=== PATIENT | male | born 1955 | race Caucasian/White ===

== ENCOUNTER → 2016-11-01 | Outpatient (REF) | payer OTHER ==
[2016-11-01 19:37] LABS: MEAN CORPUSCULAR HEMOGLOBIN 30.2 pg (27.0-33.0); MEAN CORPUSCULAR HGB CONC 33.6 g/dl (32.0-36.5); RED CELL DISTRIBUTION WIDTH 13.1 % (11.5-14.5); WHITE BLOOD COUNT 7.2 K/mm3 (4.0-10.0)
[2016-11-01 19:44] LABS: ALBUMIN 3.6 GM/DL (3.2-5.2); ALBUMIN/GLOBULIN RATIO 1.16 (1.00-1.93); ALKALINE PHOSPHATASE 67 U/L (45-117); ALT/SGPT 32 U/L (12-78); ANION GAP 10 MEQ/L (8-16); AST/SGOT 19 U/L (15-37); BILIRUBIN,TOTAL 0.6 MG/DL (0.2-1.0); BLOOD UREA NITROGEN 22 MG/DL (7-18); CALCIUM LEVEL 8.1 MG/DL (8.8-10.2); CARBON DIOXIDE LEVEL 31 MEQ/L (21-32); CHLORIDE LEVEL 101 MEQ/L (98-107); CHOLESTEROL LEVEL 246 MG/DL (<200); CREATININE FOR GFR 0.78 MG/DL (0.70-1.30); GLOMERULAR FILTRATION RATE > 60.0 (>49); GLUCOSE, FASTING 101 MG/DL (80-110); POTASSIUM SERUM 4.8 MEQ/L (3.5-5.1); SODIUM LEVEL 142 MEQ/L (136-145); TOTAL PROTEIN 6.7 GM/DL (6.4-8.2); TRIGLYCERIDES LEVEL 157 MG/DL (<150)
[2016-11-01 19:52] LABS: CALCIUM OXALATE CRYSTALS SMALL
== END ==
LOC: M SFHCLERA 09:10
PROVIDERS: ATTEND Family Medicine
DX: E11.9 Type 2 diabetes mellitus without complications (principal); E11.69 Type 2 diabetes mellitus with other specified complication; N13.9 Obstructive and reflux uropathy, unspecified; I10 Essential (primary) hypertension

== ENCOUNTER → 2017-11-05 | Outpatient (REF) | payer OTHER ==
[2017-11-05 16:40] LABS: MAGNESIUM LEVEL 2.3 MG/DL (1.8-2.4)
[2017-11-05 16:42] LABS: BASO % 0.6 % (0.0-1.0); EOS # 0.1 10^3/uL (0.0-0.50); EOS % 0.9 % (0.0-3.0); HEMATOCRIT 45.7 % (42.0-52.0); HEMOGLOBIN 16.1 g/dl (14.0-18.0); IMMATURE GRANULOCYTE % 0.3 % (0-0); LYMPH # 2.6 10^3/uL (1.5-4.5); LYMPH % 37.1 % (24.0-44.0); MEAN CORPUSCULAR HEMOGLOBIN 30.9 pg (27.0-33.0); MEAN CORPUSCULAR HGB CONC 35.2 g/dl (32.0-36.5); MEAN CORPUSCULAR VOLUME 87.7 fl (80.0-96.0); MONO # 0.6 10^3/uL (0.0-0.8); MONO % 8.2 % (0.0-5.0); NEUTROPHILS # 3.7 10^3/uL (1.8-7.7); NEUTROPHILS % 52.9 % (36.0-66.0); PLATELET COUNT, AUTOMATED 229 10^3/uL (150-450); RED BLOOD COUNT 5.21 10^6/uL (4.30-6.10)
[2017-11-05 16:53] LABS: ESTIMATED AVERAGE GLUCOSE 151 MG/DL (60-110); HEMOGLOBIN A1c 6.9 %
[2017-11-05 16:58] LABS: ALBUMIN 4.1 GM/DL (3.2-5.2); ALKALINE PHOSPHATASE 79 U/L (45-117); AST/SGOT 32 U/L (7-37); BILIRUBIN,TOTAL 0.4 MG/DL (0.2-1.0); BLOOD UREA NITROGEN 20 MG/DL (7-18); CALCIUM LEVEL 8.7 MG/DL (8.8-10.2); CARBON DIOXIDE LEVEL 31 MEQ/L (21-32); CHLORIDE LEVEL 98 MEQ/L (98-107); CHOLESTEROL LEVEL 272 MG/DL (<200); CREATININE FOR GFR 0.69 MG/DL (0.70-1.30); GLUCOSE, FASTING 123 MG/DL (80-110); HDL CHOLESTEROL 41 MG/DL (>40); POTASSIUM SERUM 4.5 MEQ/L (3.5-5.1); SODIUM LEVEL 137 MEQ/L (136-145); TOTAL PROTEIN 7.5 GM/DL (6.4-8.2); TRIGLYCERIDES LEVEL 1747 MG/DL (<150)
[2017-11-05 17:07] LABS: ALT/SGPT 54 U/L (12-78)
[2017-11-05 17:15] LABS: ANION GAP 8 MEQ/L (8-16); CHOLESTEROL RISK RATIO 6.6 (<5); NON-HDL-C 231 MG/DL
[2017-11-05 17:16] LABS: ALBUMIN/GLOBULIN RATIO 1.21 (1.00-1.93)
[2017-11-05 18:30] LABS: CREATININE, URINE 94.7 MG/DL; MAU/CREAT RATIO 115.1 MCG/MG (0.0-30.0)
== END ==
LOC: M SFHCLERA 13:15
DX: G89.29 Other chronic pain (principal); I10 Essential (primary) hypertension
CPT/HCPCS: 83735

== ENCOUNTER → 2017-11-06 | Outpatient (REF) | payer OTHER ==
[2017-11-06 14:16] LABS: CHOLESTEROL LEVEL 274 MG/DL (<200); CHOLESTEROL RISK RATIO 5.829 (<5); HDL CHOLESTEROL 47 MG/DL (>40); NON-HDL-C 227 MG/DL; TRIGLYCERIDES LEVEL 868 MG/DL (<150)
== END ==
LOC: M SFHCLERA 09:14
DX: E78.2 Mixed hyperlipidemia (principal)

== ENCOUNTER → 2017-11-17 | Outpatient (REF) | payer OTHER ==
[2017-11-17 12:12] LABS: CHOLESTEROL LEVEL 195 MG/DL (<200); CHOLESTEROL RISK RATIO 3.979 (<5); HDL CHOLESTEROL 49 MG/DL (>40); NON-HDL-C 146 MG/DL; TRIGLYCERIDES LEVEL 469 MG/DL (<150)
== END ==
LOC: M SFHCLERA 08:01
DX: E78.1 Pure hyperglyceridemia (principal)

== ENCOUNTER 2018-02-08 21:44 | Emergency (ER) | payer OTHER ==
[2018-02-08] MEDS: LIDOCAINE VISCOUS 2% SOLN 15ML UDC SSP (22:31)
[2018-02-08] MEDS: PERCOCET 5MG/325MG TAB PO (22:32)
[2018-02-08] MEDS: OXYCODONE/APAP 5MG/325MG(BULK FOR ED) 1 TABLET PO (22:32)
== END 2018-02-08 22:36 | disposition home or self-care (01) ==
LOC: M ED 21:44
DX: K04.7 Periapical abscess without sinus (principal); E11.9 Type 2 diabetes mellitus without complications; I10 Essential (primary) hypertension; E78.5 Hyperlipidemia, unspecified; K21.9 Gastro-esophageal reflux disease without esophagitis; Z86.73 Personal history of transient ischemic attack (TIA), and cerebral infarction without residual deficits; Z79.01 Long term (current) use of anticoagulants; Z79.899 Other long term (current) drug therapy; Z79.2 Long term (current) use of antibiotics; Z88.8 Allergy status to other drugs, medicaments and biological substances; Z87.2 Personal history of diseases of the skin and subcutaneous tissue
CPT/HCPCS: 99282

== ENCOUNTER → 2018-04-28 | Outpatient (REF) | payer OTHER ==
[2018-04-28 12:19] LABS: ANION GAP 7 MEQ/L (8-16); BLOOD UREA NITROGEN 20 MG/DL (7-18); CALCIUM LEVEL 8.6 MG/DL (8.8-10.2); CARBON DIOXIDE LEVEL 32 MEQ/L (21-32); CHLORIDE LEVEL 101 MEQ/L (98-107); CHOLESTEROL LEVEL 152 MG/DL (<200); CHOLESTEROL RISK RATIO 3.304 (<5); CREATININE FOR GFR 0.81 MG/DL (0.70-1.30); GLOMERULAR FILTRATION RATE > 60.0 (>49); GLUCOSE, FASTING 165 MG/DL (70-100); HDL CHOLESTEROL 46 MG/DL (>40); NON-HDL-C 106 MG/DL; POTASSIUM SERUM 4.9 MEQ/L (3.5-5.1); SODIUM LEVEL 140 MEQ/L (136-145); TRIGLYCERIDES LEVEL 290 MG/DL (<150)
[2018-04-28 16:17] LABS: ESTIMATED AVERAGE GLUCOSE 166 MG/DL (60-110); HEMOGLOBIN A1c 7.4 %
== END ==
LOC: M SFHCLERA 08:09
DX: E11.9 Type 2 diabetes mellitus without complications (principal); E78.2 Mixed hyperlipidemia; I10 Essential (primary) hypertension
CPT/HCPCS: 83036

== ENCOUNTER → 2018-07-26 | Outpatient (REF) | payer OTHER ==
[2018-07-26 13:38] LABS: ESTIMATED AVERAGE GLUCOSE 143 MG/DL (60-110); HEMOGLOBIN A1c 6.6 %
== END ==
LOC: M SFHCLERA 07:45
DX: E11.9 Type 2 diabetes mellitus without complications (principal)

== ENCOUNTER 2018-07-27 03:34 | Emergency (ER) | payer OTHER ==
[2018-07-27 04:02] LABS: BASO % 0.2 % (0.0-1.0); EOS # 0.1 10^3/uL (0.0-0.50); EOS % 0.6 % (0.0-3.0); HEMATOCRIT 43.6 % (42.0-52.0); HEMOGLOBIN 15.1 g/dl (13.5-17.5); IMMATURE GRANULOCYTE % 0.6 % (0-3.0); LYMPH # 1.3 10^3/uL (1.5-4.5); LYMPH % 14.1 % (24.0-44.0); MEAN CORPUSCULAR HEMOGLOBIN 30.4 pg (27.0-33.0); MEAN CORPUSCULAR HGB CONC 34.6 g/dl (32.0-36.5); MEAN CORPUSCULAR VOLUME 87.9 fl (80.0-96.0); MONO # 0.4 10^3/uL (0.0-0.8); NEUTROPHILS # 7.3 10^3/uL (1.8-7.7); NEUTROPHILS % 80.5 % (36.0-66.0); PLATELET COUNT, AUTOMATED 244 10^3/uL (150-450); RED BLOOD COUNT 4.96 10^6/uL (4.30-6.10); RED CELL DISTRIBUTION WIDTH 12.3 % (11.5-14.5)
[2018-07-27 04:24] LABS: ANION GAP 8 MEQ/L (8-16); BLOOD UREA NITROGEN 26 MG/DL (7-18); CALCIUM LEVEL 8.7 MG/DL (8.8-10.2); CARBON DIOXIDE LEVEL 29 MEQ/L (21-32); CHLORIDE LEVEL 100 MEQ/L (98-107); CREATININE FOR GFR 1.09 MG/DL (0.70-1.30); GLOMERULAR FILTRATION RATE > 60.0 (>49); GLUCOSE, FASTING 201 MG/DL (70-100); POTASSIUM SERUM 4.3 MEQ/L (3.5-5.1); SODIUM LEVEL 137 MEQ/L (136-145)
[2018-07-27] MEDS: NS 1,000 ML IV (04:30)
[2018-07-27] MEDS: METOCLOPRAMIDE INJ 10MG/2ML VIAL (J2765) IV (04:30)
[2018-07-27] MEDS: MORPHINE 4 MG/ML 1ML VIAL/SYRINGE (J2270) IV ×3 (04:30→08:11)
[2018-07-27 04:52] LABS: ALBUMIN 3.9 GM/DL (3.2-5.2); ALBUMIN/GLOBULIN RATIO 1.08 (1.00-1.93); ALKALINE PHOSPHATASE 68 U/L (45-117); ALT/SGPT 37 U/L (12-78); AST/SGOT 17 U/L (7-37); BILIRUBIN,DIRECT 0.2 MG/DL (0.0-0.2); BILIRUBIN,TOTAL 0.7 MG/DL (0.2-1.0); LIPASE 87 U/L (73-393); TOTAL PROTEIN 7.5 GM/DL (6.4-8.2)
[2018-07-27] MEDS: GASTROGRAFIN SOLUTION 30ML PO ×2 (05:45→06:00)
[2018-07-27] MEDS ORDERED: ISOVUE-370 76% 100ML VIAL (Q9967) As Ordered (06:54)
[2018-07-27 07:29] LABS: AMORPHOUS SEDIMENT SMALL (NEGATIVE); APPEARANCE, URINE HAZY (CLEAR); BACTERIA, URINE AUTO NEGATIVE (NEGATIVE); BILIRUBIN, URINE AUTO NEGATIVE (NEGATIVE); BLOOD, URINE BLOOD 3+ (NEGATIVE); COLOR, URINE YELLOW (YELLOW); GLUCOSE, URINE (UA) AUTO NEGATIVE (NEGATIVE); KETONE, URINE AUTO TRACE mg/dL (NEGATIVE); LEUKOCYTE ESTERASE, URINE AUTO NEGATIVE (NEGATIVE); MUCUS, URINE SMALL (NEGATIVE); NITRITE, URINE AUTO NEGATIVE (NEGATIVE); PROTEIN, URINE AUTO 1+ mg/dL (NEGATIVE); RBC, URINE AUTO TNTC /HPF (0-3); SPECIFIC GRAVITY URINE AUTO 1.023 (1.002-1.035); SQUAMOUS EPITHELIAL CELL UR AU 0 /HPF (0-6); UROBILINOGEN, URINE AUTO 0.2 mg/dL (0.0-2.0); WBC, URINE AUTO 4 /HPF (0-3)
== END 2018-07-27 09:33 | disposition home or self-care (01) ==
LOC: M ED 03:34
DX: N20.1 Calculus of ureter (principal); E11.9 Type 2 diabetes mellitus without complications; I10 Essential (primary) hypertension; E78.5 Hyperlipidemia, unspecified; K76.0 Fatty (change of) liver, not elsewhere classified; E73.9 Lactose intolerance, unspecified; Z79.899 Other long term (current) drug therapy; Z88.8 Allergy status to other drugs, medicaments and biological substances
CPT/HCPCS: J2270

== ENCOUNTER 2018-07-28 16:34 | Emergency (ER) | payer OTHER ==
[2018-07-28] MEDS: ONDANSETRON 4MG/2ML VIAL (J2405) IV (17:19)
[2018-07-28] MEDS: MORPHINE 4 MG/ML 1ML VIAL/SYRINGE (J2270) IV ×2 (17:23→18:22)
[2018-07-28] MEDS: NS 1,000 ML IV (17:23)
[2018-07-28 17:28] LABS: KETONE, URINE AUTO RFX NEGATIVE (NEGATIVE); LEUKOCYTE ESTERASE UR AUTO RFX NEGATIVE (NEGATIVE); MUCUS, URINE RFX SMALL (NEGATIVE); NITRITE, URINE AUTO RFX NEGATIVE (NEGATIVE); RBC, URINE AUTO RFX 40 /HPF (0-3); SQUAM EPITHELIAL CELL UR AURFX 0 /HPF (0-6); WBC, URINE AUTO RFX 1 /HPF (0-3)
[2018-07-28 17:29] LABS: BASO % 0.5 % (0.0-1.0); EOS # 0.1 10^3/uL (0.0-0.50); EOS % 0.8 % (0.0-3.0); HEMATOCRIT 41.5 % (42.0-52.0); HEMOGLOBIN 14.3 g/dl (13.5-17.5); IMMATURE GRANULOCYTE % 0.3 % (0-3.0); LYMPH % 23.7 % (24.0-44.0); MEAN CORPUSCULAR HEMOGLOBIN 30.4 pg (27.0-33.0); MEAN CORPUSCULAR HGB CONC 34.5 g/dl (32.0-36.5); MEAN CORPUSCULAR VOLUME 88.3 fl (80.0-96.0); MONO # 0.7 10^3/uL (0.0-0.8); MONO % 8.4 % (0.0-5.0); NEUTROPHILS # 5.7 10^3/uL (1.8-7.7); NEUTROPHILS % 66.3 % (36.0-66.0); PLATELET COUNT, AUTOMATED 229 10^3/uL (150-450); RED CELL DISTRIBUTION WIDTH 12.3 % (11.5-14.5); WHITE BLOOD COUNT 8.6 10^3/uL (4.0-10.0)
[2018-07-28 17:57] LABS: ALBUMIN 3.6 GM/DL (3.2-5.2); ALBUMIN/GLOBULIN RATIO 1.03 (1.00-1.93); ALKALINE PHOSPHATASE 70 U/L (45-117); ALT/SGPT 34 U/L (12-78); ANION GAP 9 MEQ/L (8-16); AST/SGOT 18 U/L (7-37); BILIRUBIN,DIRECT 0.1 MG/DL (0.0-0.2); BILIRUBIN,TOTAL 0.5 MG/DL (0.2-1.0); BLOOD UREA NITROGEN 21 MG/DL (7-18); CALCIUM LEVEL 8.3 MG/DL (8.8-10.2); CARBON DIOXIDE LEVEL 27 MEQ/L (21-32); CHLORIDE LEVEL 104 MEQ/L (98-107); CREATININE FOR GFR 1.14 MG/DL (0.70-1.30); GLOMERULAR FILTRATION RATE > 60.0 (>49); GLUCOSE, FASTING 169 MG/DL (70-100); LIPASE 92 U/L (73-393); SODIUM LEVEL 140 MEQ/L (136-145); TOTAL PROTEIN 7.1 GM/DL (6.4-8.2)
== END 2018-07-28 19:20 | disposition home or self-care (01) ==
LOC: M ED 16:34
DX: N21.1 Calculus in urethra (principal); I10 Essential (primary) hypertension; E11.9 Type 2 diabetes mellitus without complications; E78.5 Hyperlipidemia, unspecified; K21.9 Gastro-esophageal reflux disease without esophagitis; Z79.899 Other long term (current) drug therapy; Z79.84 Long term (current) use of oral hypoglycemic drugs; Z88.8 Allergy status to other drugs, medicaments and biological substances; E73.9 Lactose intolerance, unspecified
CPT/HCPCS: J2270

== ENCOUNTER 2018-07-31 10:51 | Day surgery (SDC) | payer OTHER ==
[2018-07-31] MEDS ORDERED: HYDROMORPHONE HCL 0.5 MG/ 0.5 ML SYRINGE (J1170 PER 1) IV (11:15)
[2018-07-31 11:26] LABS: BASO # 0.1 10^3/uL (0.0-0.2); BASO % 0.8 % (0.0-1.0); EOS # 0.1 10^3/uL (0.0-0.50); HEMATOCRIT 42.9 % (42.0-52.0); IMMATURE GRANULOCYTE % 0.3 % (0-3.0); LYMPH # 1.9 10^3/uL (1.5-4.5); LYMPH % 31.8 % (24.0-44.0); MEAN CORPUSCULAR HEMOGLOBIN 30.8 pg (27.0-33.0); MEAN CORPUSCULAR VOLUME 88.1 fl (80.0-96.0); MONO # 0.5 10^3/uL (0.0-0.8); MONO % 8.9 % (0.0-5.0); NEUTROPHILS # 3.4 10^3/uL (1.8-7.7); NEUTROPHILS % 56.2 % (36.0-66.0); PLATELET COUNT, AUTOMATED 229 10^3/uL (150-450); RED BLOOD COUNT 4.87 10^6/uL (4.30-6.10); RED CELL DISTRIBUTION WIDTH 12.1 % (11.5-14.5)
[2018-07-31] MEDS: NS 1,000 ML IV (11:35)
[2018-07-31] MEDS: KETOROLAC 30 MG/ML VIAL (J1885) IV (11:38)
[2018-07-31 13:03] LABS: BEDSIDE GLUCOSE 94 MG/DL (80-115)
[2018-07-31] MEDS: CONRAY-60 60% 50ML VIAL (Q9961) As Ordered (13:16)
[2018-07-31 13:26] LABS: ANION GAP 8 MEQ/L (8-16); BLOOD UREA NITROGEN 18 MG/DL (7-18); CALCIUM LEVEL 8.7 MG/DL (8.8-10.2); CARBON DIOXIDE LEVEL 29 MEQ/L (21-32); CHLORIDE LEVEL 100 MEQ/L (98-107); CREATININE FOR GFR 0.75 MG/DL (0.70-1.30); GLOMERULAR FILTRATION RATE > 60.0 (>49); GLUCOSE, FASTING 152 MG/DL (70-100); POTASSIUM SERUM 4.9 MEQ/L (3.5-5.1); SODIUM LEVEL 137 MEQ/L (136-145)
[2018-07-31] MEDS ORDERED: PROPOFOL 200 MG/20 ML VIAL As Ordered (13:36)
[2018-07-31] MEDS ORDERED: ROCURONIUM BROMIDE 50 MG/5 ML VIAL As Ordered (13:36)
[2018-07-31] MEDS ORDERED: MIDAZOLAM INJ 2 MG/2 ML VIAL (J2250) As Ordered (13:36)
[2018-07-31] MEDS ORDERED: SUGAMMADEX SODIUM 500 MG/5 ML VIAL (BRIDION) As Ordered (13:36)
[2018-07-31] MEDS ORDERED: dexameTHASONE 4 MG/ML 1ML VIAL (J1100) As Ordered ×2 (13:36)
[2018-07-31] MEDS ORDERED: fentaNYL 250 MCG/5 ML INJECTION (J3010) As Ordered (13:36)
[2018-07-31] MEDS ORDERED: LIDOCAINE 2% INJ 100 MG/5 ML SDV (FOR ANES.) As Ordered (13:36)
[2018-07-31] MEDS ORDERED: ONDANSETRON 4MG/2ML VIAL (J2405) As Ordered (13:36)
[2018-07-31] MEDS: LIDOCAINE 2% 5ML JELLY UROJET As Ordered (13:44)
[2018-07-31] MEDS ORDERED: PERCOCET 5MG/325MG TAB PO (14:45)
[2018-07-31] MEDS ORDERED: LR 1,000 ML IV (14:45)
[2018-07-31] MEDS ORDERED: fentaNYL 100 MCG/2 ML INJECTION (J3010) IV (14:45)
[2018-07-31] MEDS ORDERED: ONDANSETRON 4MG/2ML VIAL (J2405) IV (14:45)
[2018-07-31] MEDS: BACTRIM 160MG/800MG DS TAB PO (17:17)
== END 2018-07-31 17:40 | disposition home or self-care (01) ==
LOC: M ED 10:51 → M SDC 11:24 → M PED 14:35 → M SDC 17:40
DX: N20.1 Calculus of ureter (principal); I10 Essential (primary) hypertension; E78.5 Hyperlipidemia, unspecified; E11.9 Type 2 diabetes mellitus without complications; G47.33 Obstructive sleep apnea (adult) (pediatric); K21.9 Gastro-esophageal reflux disease without esophagitis; N40.0 Benign prostatic hyperplasia without lower urinary tract symptoms; E66.9 Obesity, unspecified; Z68.37 Body mass index [BMI] 37.0-37.9, adult; Z88.8 Allergy status to other drugs, medicaments and biological substances; Z79.899 Other long term (current) drug therapy; Z79.01 Long term (current) use of anticoagulants; Z86.73 Personal history of transient ischemic attack (TIA), and cerebral infarction without residual deficits; Z87.891 Personal history of nicotine dependence
CPT/HCPCS: 52352

== ENCOUNTER → 2018-08-03 | Outpatient (REF) | payer OTHER ==
[2018-08-03 10:19] LABS: ANION GAP 8 MEQ/L (8-16); BLOOD UREA NITROGEN 18 MG/DL (7-18); CALCIUM LEVEL 8.4 MG/DL (8.8-10.2); CARBON DIOXIDE LEVEL 28 MEQ/L (21-32); CHLORIDE LEVEL 104 MEQ/L (98-107); CREATININE FOR GFR 0.85 MG/DL (0.70-1.30); GLOMERULAR FILTRATION RATE > 60.0 (>49); GLUCOSE, FASTING 118 MG/DL (70-100); POTASSIUM SERUM 4.2 MEQ/L (3.5-5.1); SODIUM LEVEL 140 MEQ/L (136-145)
== END ==
LOC: M SFHCLERA 08:15
DX: N20.1 Calculus of ureter (principal)

== ENCOUNTER → 2018-08-20 | Outpatient (REF) | payer OTHER ==
[2018-08-20 14:04] LABS: APPEARANCE, URINE CLEAR (CLEAR); BACTERIA, URINE AUTO NEGATIVE (NEGATIVE); BILIRUBIN, URINE AUTO NEGATIVE (NEGATIVE); BLOOD, URINE BLOOD NEGATIVE (NEGATIVE); CALCIUM OXALATE CRYSTALS MODERATE; COLOR, URINE YELLOW (YELLOW); GLUCOSE, URINE (UA) AUTO NEGATIVE (NEGATIVE); KETONE, URINE AUTO NEGATIVE (NEGATIVE); LEUKOCYTE ESTERASE, URINE AUTO NEGATIVE (NEGATIVE); NITRITE, URINE AUTO NEGATIVE (NEGATIVE); PROTEIN, URINE AUTO NEGATIVE (NEGATIVE); RBC, URINE AUTO 0 /HPF (0-3); SPECIFIC GRAVITY URINE AUTO 1.024 (1.002-1.035); SQUAMOUS EPITHELIAL CELL UR AU 0 /HPF (0-6); WBC, URINE AUTO 0 /HPF (0-3)
== END ==
LOC: M SMT 13:42
DX: Z46.6 Encounter for fitting and adjustment of urinary device (principal)

== ENCOUNTER → 2018-12-16 | Outpatient (REF) | payer OTHER ==
[~2018-12-16] MED LIST: AMLO10TA5 PO; ATOR80TA59 PO; BACT800T5 PO; CARV25TA PO; CLOP75TA2 PO; FLOM0.4C39; FLOM0.4C39 PO; GLYB25TA; GLYB5TA PO; HYDR25TAB PO; LIDO1SOL7 SSP; LISI40TA PO; NORC1TAB4 PO; NORCOTAB PO; OMEP20CA3 PO; PERC5TAB12 PO; penicillin PO
[2018-12-16 16:59] LABS: ALT/SGPT 42 U/L (12-78); BILIRUBIN,TOTAL 0.5 MG/DL (0.2-1.0); BLOOD UREA NITROGEN 18 MG/DL (7-18); CALCIUM LEVEL 9.2 MG/DL (8.8-10.2); CARBON DIOXIDE LEVEL 32 MEQ/L (21-32); CHLORIDE LEVEL 100 MEQ/L (98-107); CREATININE FOR GFR 0.72 MG/DL (0.70-1.30); FERRITIN 94 NG/ML (26-388); GLOMERULAR FILTRATION RATE > 60.0 (>49); GLUCOSE, FASTING 114 MG/DL (70-100); POTASSIUM SERUM 4.7 MEQ/L (3.5-5.1); SODIUM LEVEL 138 MEQ/L (136-145); TOTAL PROTEIN 7.5 GM/DL (6.4-8.2)
[2018-12-16 17:02] LABS: HEMOGLOBIN A1c 7.4 %
== END ==
LOC: M SFHCLERA 12:45
PROVIDERS: ATTEND Family Medicine
DX: E11.9 Type 2 diabetes mellitus without complications (principal); L81.9 Disorder of pigmentation, unspecified
CPT/HCPCS: 80053; 82728; 83036; G0463

== ENCOUNTER → 2019-02-22 | Outpatient (REF) | payer OTHER ==
[~2019-02-22] MED LIST changes: +HYDR-3715 PO; -LIDO1SOL7 SSP; +LIDO1SOL8 SSP; -NORC1TAB4 PO; +NORC1TAB7 PO; -NORCOTAB PO
[2019-02-22 13:36] LABS: BLOOD UREA NITROGEN 18 MG/DL (7-18); CREATININE FOR GFR 0.76 MG/DL (0.70-1.30); GLOMERULAR FILTRATION RATE > 60.0 (>49)
== END ==
LOC: M LABNEURO 08:45
PROVIDERS: ATTEND Psychiatry & Neurology Neurology
DX: I10 Essential (primary) hypertension (principal)

== ENCOUNTER → 2019-04-14 | Outpatient (REF) | payer OTHER ==
[~2019-04-14] MED LIST changes: -OMEP20CA3 PO; +OMEP20CA4 PO
[2019-04-14 16:58] LABS: ALBUMIN 3.7 GM/DL (3.2-5.2); ALT/SGPT 38 U/L (12-78); BILIRUBIN,TOTAL 0.7 MG/DL (0.2-1.0); BLOOD UREA NITROGEN 24 MG/DL (7-18); CALCIUM LEVEL 9.4 MG/DL (8.8-10.2); CARBON DIOXIDE LEVEL 31 MEQ/L (21-32); CHLORIDE LEVEL 100 MEQ/L (98-107); CHOLESTEROL LEVEL 154 MG/DL (<200); CHOLESTEROL RISK RATIO 3.276 (<5); CREATININE FOR GFR 0.72 MG/DL (0.70-1.30); GLOMERULAR FILTRATION RATE > 60.0 (>49); GLUCOSE, FASTING 150 MG/DL (70-100); HDL CHOLESTEROL 47 MG/DL (>40); NON-HDL-C 107 MG/DL; POTASSIUM SERUM 4.1 MEQ/L (3.5-5.1); SODIUM LEVEL 137 MEQ/L (136-145); TRIGLYCERIDES LEVEL 488 MG/DL (<150)
[2019-04-14 17:08] LABS: HEMOGLOBIN A1c 8.3 %
== END ==
LOC: M SFHCLERA 12:15
PROVIDERS: ATTEND Family Medicine
DX: E11.9 Type 2 diabetes mellitus without complications (principal)
CPT/HCPCS: 80053; 80061; 83036; G0463

== ENCOUNTER → 2019-07-13 | Outpatient (REF) | payer OTHER ==
[~2019-07-13] MED LIST changes: +OMEP1CAP73 PO; -OMEP20CA4 PO
[2019-07-13 17:11] LABS: BLOOD UREA NITROGEN 16 MG/DL (7-18); CALCIUM LEVEL 9.5 MG/DL (8.8-10.2); CARBON DIOXIDE LEVEL 31 MEQ/L (21-32); CHLORIDE LEVEL 99 MEQ/L (98-107); CREATININE FOR GFR 0.72 MG/DL (0.70-1.30); GLOMERULAR FILTRATION RATE > 60.0 (>49); GLUCOSE, FASTING 77 MG/DL (70-100); POTASSIUM SERUM 4.1 MEQ/L (3.5-5.1); SODIUM LEVEL 139 MEQ/L (136-145)
[2019-07-13 17:24] LABS: HEMOGLOBIN A1c 6.7 %
== END ==
LOC: M SFHCLERA 11:36
PROVIDERS: ATTEND Family Medicine
DX: R19.7 Diarrhea, unspecified (principal); E11.9 Type 2 diabetes mellitus without complications; R10.9 Unspecified abdominal pain
CPT/HCPCS: 80048; 83036; G0463

== ENCOUNTER → 2019-08-11 | Outpatient (REF) | payer OTHER ==
[~2019-08-11] MED LIST changes: -OMEP1CAP73 PO; +OMEP20CA4 PO
[2019-08-11 20:17] LABS: AMORPHOUS SEDIMENT MODERATE (NEGATIVE); APPEARANCE, URINE TURBID (CLEAR); BACTERIA, URINE AUTO NEGATIVE (NEGATIVE); BASO # 0.1 10^3/uL (0.0-0.2); BASO % 0.6 % (0.0-1.0); BILIRUBIN, URINE AUTO NEGATIVE (NEGATIVE); BLOOD, URINE BLOOD NEGATIVE (NEGATIVE); COLOR, URINE AMBER (YELLOW); EOS # 0.3 10^3/uL (0.0-0.5); EOS % 3.1 % (0.0-3.0); GLUCOSE, URINE (UA) AUTO NEGATIVE (NEGATIVE); HEMATOCRIT 44.9 % (42.0-52.0); HEMOGLOBIN 15.6 g/dl (13.5-17.5); KETONE, URINE AUTO NEGATIVE (NEGATIVE); LEUKOCYTE ESTERASE, URINE AUTO TRACE (NEGATIVE); LYMPH # 1.9 10^3/uL (1.5-5.0); LYMPH % 24.2 % (24.0-44.0); MEAN CORPUSCULAR HEMOGLOBIN 30.1 pg (27.0-33.0); MEAN CORPUSCULAR HGB CONC 34.7 g/dl (32.0-36.5); MEAN CORPUSCULAR VOLUME 86.5 fl (80.0-96.0); MONO # 0.6 10^3/uL (0.0-0.8); MONO % 7.9 % (0.0-5.0); MUCUS, URINE SMALL (NEGATIVE); NEUTROPHILS # 5.1 10^3/uL (1.5-8.5); NEUTROPHILS % 64.1 % (36.0-66.0); NITRITE, URINE AUTO NEGATIVE (NEGATIVE); PLATELET COUNT, AUTOMATED 229 10^3/uL (150-450); PROTEIN, URINE AUTO NEGATIVE (NEGATIVE); RBC, URINE AUTO 1 /HPF (0-3); RED BLOOD COUNT 5.19 10^6/uL (4.30-6.10); SPECIFIC GRAVITY URINE AUTO 1.026 (1.002-1.035); SQUAMOUS EPITHELIAL CELL UR AU 0 /HPF (0-6); WBC, URINE AUTO 11 /HPF (0-3)
[2019-08-11 20:34] LABS: ALBUMIN 3.5 GM/DL (3.2-5.2); ALT/SGPT 36 U/L (12-78); BILIRUBIN,TOTAL 0.5 MG/DL (0.2-1.0); BLOOD UREA NITROGEN 24 MG/DL (7-18); CALCIUM LEVEL 8.1 MG/DL (8.8-10.2); CARBON DIOXIDE LEVEL 31 MEQ/L (21-32); CHLORIDE LEVEL 99 MEQ/L (98-107); CREATININE FOR GFR 0.91 MG/DL (0.70-1.30); GLOMERULAR FILTRATION RATE > 60.0 (>49); GLUCOSE, FASTING 183 MG/DL (70-100); POTASSIUM SERUM 3.4 MEQ/L (3.5-5.1); SODIUM LEVEL 136 MEQ/L (136-145); TOTAL PROTEIN 6.6 GM/DL (6.4-8.2)
== END ==
LOC: M SFHCLERA 14:39
PROVIDERS: ATTEND Family Medicine
DX: R10.84 Generalized abdominal pain (principal)
CPT/HCPCS: 80053; 81001; 84443; 85025; G0463

== ENCOUNTER → 2019-08-24 | Outpatient (CLI) | payer OTHER ==
--- NOTE | 2019-08-25 13:31 | REP ---
Clinical: Abdominal pain. Comparison: 07/27/2018. Technique: Axial noncontrast images from the lung bases to the pubic symphysis with coronal and sagittal re-formations. Findings: Liver, spleen, pancreas, gallbladder, bilateral adrenal glands and kidneys are normal for noncontrast examination. Previously noted right-sided hydronephrosis and obstructing calculus have resolved. The enteric system is without obstruction or acute inflammatory process. Normal terminal ileum and appendix with residual contrast/appendicolith noted in the right lower quadrant. Scattered sigmoid diverticula without acute diverticulitis. Pelvis demonstrates normal bladder. Prostate gland is mildly prominent and demonstrates heterogeneous calcification. No ascites. No free air. No adenopathy. Abdominal aorta without aneurysm. Musculoskeletal structures demonstrate age-related changes without focal abnormality. Lung bases are clear. Impression: 1. No acute abdominopelvic pathology appreciated. 2. Previously noted right-sided obstructive uropathy resolved. 3. Few scattered sigmoid diverticula without acute diverticulitis. Electronically Signed by Sal Brito MD 08/25/2019 01:23 P
== END ==
LOC: M RAD 06:42
PROVIDERS: ATTEND Family Medicine
DX: R10.84 Generalized abdominal pain (principal)

== ENCOUNTER → 2019-12-06 | Outpatient (REF) | payer OTHER ==
[~2019-12-06] MED LIST changes: -LIDO1SOL8 SSP; +LIDO2SOL17 SSP; +OMEP1CAP73 PO; -OMEP20CA4 PO
[2019-12-06 11:55] LABS: BLOOD UREA NITROGEN 16 MG/DL (7-18); CALCIUM LEVEL 9.2 MG/DL (8.8-10.2); CARBON DIOXIDE LEVEL 33 MEQ/L (21-32); CHLORIDE LEVEL 97 MEQ/L (98-107); CREATININE FOR GFR 0.78 MG/DL (0.70-1.30); GLOMERULAR FILTRATION RATE > 60.0 (>49); GLUCOSE, FASTING 164 MG/DL (70-100); POTASSIUM SERUM 4.6 MEQ/L (3.5-5.1); SODIUM LEVEL 135 MEQ/L (136-145)
== END ==
LOC: M SFHCLERA 08:03
PROVIDERS: ATTEND Family Medicine
DX: E11.9 Type 2 diabetes mellitus without complications (principal)

== ENCOUNTER → 2020-05-30 | Outpatient (REF) | payer OTHER ==
[~2020-05-30] MED LIST changes: -AMLO10TA5 PO; +AMLO1TAB25 PO
[2020-07-15 14:14] LABS: ALBUMIN 3.9 GM/DL (3.2-5.2); ALT/SGPT 82 U/L (12-78); BILIRUBIN,TOTAL 0.5 MG/DL (0.2-1.0); BLOOD UREA NITROGEN 20 MG/DL (7-18); CALCIUM LEVEL 9.6 MG/DL (8.8-10.2); CARBON DIOXIDE LEVEL 34 MEQ/L (21-32); CHLORIDE LEVEL 97 MEQ/L (98-107); CHOLESTEROL LEVEL 180 MG/DL (<200); CHOLESTEROL RISK RATIO 3.913 (<5); CREATININE FOR GFR 0.85 MG/DL (0.70-1.30); GLOMERULAR FILTRATION RATE > 60.0 (>49); GLUCOSE, FASTING 124 MG/DL (70-100); HDL CHOLESTEROL 46 MG/DL (>40); HEMOGLOBIN A1c 8.1 %; MALB URINE SIEMENS 18.4 MG/L; NON-HDL-C 134 MG/DL; POTASSIUM SERUM 4.4 MEQ/L (3.5-5.1); SODIUM LEVEL 137 MEQ/L (136-145); TOTAL PROTEIN 7.6 GM/DL (6.4-8.2); TRIGLYCERIDES LEVEL 558 MG/DL (<150)
[2020-07-22 10:22] LABS: BASO % 0.6 % (0.0-1.0); EOS # 0.1 10^3/uL (0.0-0.5); EOS % 1.4 % (0.0-3.0); HEMATOCRIT 45.8 % (42.0-52.0); HEMOGLOBIN 15.7 g/dl (13.5-17.5); LYMPH # 2.4 10^3/uL (1.5-5.0); LYMPH % 33.6 % (24.0-44.0); MEAN CORPUSCULAR HEMOGLOBIN 30.1 pg (27.0-33.0); MEAN CORPUSCULAR HGB CONC 34.3 g/dl (32.0-36.5); MEAN CORPUSCULAR VOLUME 87.9 fl (80.0-96.0); MONO # 0.6 10^3/uL (0.0-0.8); MONO % 8.7 % (0.0-5.0); NEUTROPHILS # 3.9 10^3/uL (1.5-8.5); NEUTROPHILS % 55.4 % (36.0-66.0); PLATELET COUNT, AUTOMATED 233 10^3/uL (150-450); RED BLOOD COUNT 5.21 10^6/uL (4.30-6.10); WHITE BLOOD COUNT 7.1 10^3/uL (4.0-10.0)
== END ==
LOC: M SFHCLERA 11:30
PROVIDERS: ATTEND Family Medicine
DX: E11.9 Type 2 diabetes mellitus without complications (principal); I10 Essential (primary) hypertension; R94.5 Abnormal results of liver function studies

== ENCOUNTER → 2020-07-02 | Outpatient (CLI) | payer MEDICARE, OTHER ==
--- NOTE | 2020-07-17 15:03 | REP ---
LIVER ULTRASOUND CLINICAL: Elevated liver function tests. TECHNIQUE: Real-time lira scale and color evaluation using curved array transducer. FINDINGS: The liver is diffusely echogenic with poor-through transmission suggesting fatty infiltration. No focal hepatic lesions are identified. The pancreas is incompletely evaluated due to interposed bowel gas, but visualized portions appear normal. The gallbladder demonstrates small amount of layering sludge without wall thickening or pericholecystic fluid. No biliary ductal dilatation is appreciated and the common bile duct measures 5 mm in diameter. The right kidney is normal in reniform shape without hydronephrosis and measures 13.3 x 6.6 x 5.9 cm. No ascites in the visualized right upper quadrant. IMPRESSION: Hepatosteatosis. No focal hepatic lesion. MTDD
== END ==
LOC: M RAD 07:35
PROVIDERS: ATTEND Family Medicine
DX: R94.5 Abnormal results of liver function studies (principal)

== ENCOUNTER → 2020-12-05 | Outpatient (CLI) | payer MEDICARE, OTHER ==
[~2020-12-05] MED LIST changes: -GLYB5TA PO; +GLYB5TAB6 PO; +HYDR-3490 PO; -HYDR25TAB PO; -LISI40TA PO; +LISI40TA4 PO
[2020-12-05 06:57] LABS: BASO % 0.6 % (0.0-1.0); EOS # 0.2 10^3/uL (0.0-0.5); EOS % 2.1 % (0.0-3.0); HEMATOCRIT 49.9 % (42.0-52.0); HEMOGLOBIN 16.7 g/dl (13.5-17.5); LYMPH # 1.9 10^3/uL (1.5-5.0); LYMPH % 26.7 % (24.0-44.0); MEAN CORPUSCULAR HEMOGLOBIN 28.6 pg (27.0-33.0); MEAN CORPUSCULAR HGB CONC 33.5 g/dl (32.0-36.5); MEAN CORPUSCULAR VOLUME 85.6 fl (80.0-96.0); MONO # 0.6 10^3/uL (0.0-0.8); MONO % 9.1 % (2.0-8.0); NEUTROPHILS # 4.3 10^3/uL (1.5-8.5); NEUTROPHILS % 61.1 % (36.0-66.0); PLATELET COUNT, AUTOMATED 207 10^3/uL (150-450); RED BLOOD COUNT 5.83 10^6/uL (4.30-6.10)
[2020-12-05 07:22] LABS: ALBUMIN 3.9 GM/DL (3.2-5.2); ALT/SGPT 42 U/L (12-78); BILIRUBIN,TOTAL 0.6 MG/DL (0.2-1.0); BLOOD UREA NITROGEN 17 MG/DL (7-18); CALCIUM LEVEL 8.7 MG/DL (8.8-10.2); CARBON DIOXIDE LEVEL 28 MEQ/L (21-32); CHLORIDE LEVEL 97 MEQ/L (98-107); CHOLESTEROL LEVEL 190 MG/DL (<200); CHOLESTEROL RISK RATIO 3.653 (<5); GLOMERULAR FILTRATION RATE > 60.0 (>49); GLUCOSE, FASTING 183 MG/DL (70-100); HDL CHOLESTEROL 52 MG/DL (>40); NON-HDL-C 138 MG/DL; POTASSIUM SERUM 3.9 MEQ/L (3.5-5.1); SODIUM LEVEL 135 MEQ/L (136-145); TOTAL PROTEIN 7.2 GM/DL (6.4-8.2); TRIGLYCERIDES LEVEL 501 MG/DL (<150)
[2020-12-05 10:10] LABS: HEMOGLOBIN A1c 8.1 %
== END ==
LOC: M LAB 06:00
PROVIDERS: ATTEND Family Medicine
DX: E11.9 Type 2 diabetes mellitus without complications (principal); E78.2 Mixed hyperlipidemia; I10 Essential (primary) hypertension

== ENCOUNTER → 2021-02-09 | Outpatient (CLI) | payer MEDICARE, OTHER ==
[~2021-02-09] MED LIST changes: +GLYB2.5T7; -GLYB25TA
--- NOTE | 2021-02-13 10:26 | SLEEPCENT ---
NOCTURNAL POLYSOMNOGRAPHY DATE: 02/09/2021 ORDERED BY: RIKA Cesar Nocturnal polysomnography was performed for evaluation of sleep physiology in this patient with a history of excessive somnolence and nonrestorative sleep. 7 hours and 36 minutes of data were reviewed. There were 289.5 minutes of sleep identified. Sleep latency was normal at 10.5 minutes. REM sleep was delayed at 220 minutes. Sleep architecture showed fragmentation. Improvement was seen after interventions were made and there were three REM cycles noted. Overall sleep efficiency was 64.3%. The electrocardiogram showed a sinus rhythm with PVCs. Average heart rate was 60 beats per minute. EEG showed normal waveforms for wake and sleep. There were 227 respiratory events identified of 10 seconds in duration or greater for an apnea-hypopnea index of 47. Having clearly established the presence of obstructive sleep apnea syndrome early in testing and having identified oxygen desaturations into the 70s, the study was stopped for the application of pressure therapy. The patient was fit with a ResMed Quattro full face mask of medium size, 5 cm of water pressure were applied to the circuit and the lights were extinguished. Throughout the remaining hours of testing, pressure titration was performed to the optimal pressure of 11. Some minor hypopneic events persisted, but without significant oxygen desaturations. IMPRESSION: Severe obstructive sleep apnea syndrome (G47.33), apnea-hypopnea index 47. RECOMMENDATION: Initiation of pressure therapy at 11 cm of water would seem appropriate based on these findings. Should the patient continue to experience symptoms, a full night retitration may be necessary.
== END ==
LOC: M SLEEP 20:00
PROVIDERS: ATTEND Nurse Practitioner Family
DX: G47.33 Obstructive sleep apnea (adult) (pediatric) (principal)

== ENCOUNTER → 2021-03-06 | Outpatient (CLI) | payer MEDICARE, OTHER ==
[2021-03-06 08:20] LABS: BLOOD UREA NITROGEN 17 MG/DL (7-18); CALCIUM LEVEL 8.2 MG/DL (8.8-10.2); CARBON DIOXIDE LEVEL 31 MEQ/L (21-32); CHLORIDE LEVEL 97 MEQ/L (98-107); CHOLESTEROL LEVEL 180 MG/DL (<200); CHOLESTEROL RISK RATIO 4.285 (<5); CREATININE FOR GFR 0.63 MG/DL (0.70-1.30); GLOMERULAR FILTRATION RATE > 60.0 (>49); GLUCOSE, FASTING 156 MG/DL (70-100); HDL CHOLESTEROL 42 MG/DL (>40); NON-HDL-C 138 MG/DL; POTASSIUM SERUM 3.1 MEQ/L (3.5-5.1); SODIUM LEVEL 136 MEQ/L (136-145); TRIGLYCERIDES LEVEL 866 MG/DL (<150)
[2021-03-06 08:28] LABS: CREATININE, URINE 70.9 MG/DL; MALB URINE SIEMENS 29.2 MG/L; MAU/CREAT RATIO 41.1 MCG/MG (0.0-30.0)
[2021-03-06 10:19] LABS: HEMOGLOBIN A1c 7.8 %
== END ==
LOC: M LAB 06:49
PROVIDERS: ATTEND Family Medicine
DX: E11.9 Type 2 diabetes mellitus without complications (principal)

== ENCOUNTER → 2021-04-12 | Outpatient (CLI) | payer MEDICARE, OTHER ==
[2021-04-12 09:47] LABS: ALBUMIN 3.8 GM/DL (3.2-5.2); ALT/SGPT 38 U/L (12-78); BILIRUBIN,TOTAL 0.6 MG/DL (0.2-1.0); BLOOD UREA NITROGEN 20 MG/DL (7-18); CALCIUM LEVEL 8.9 MG/DL (8.8-10.2); CARBON DIOXIDE LEVEL 33 MEQ/L (21-32); CHLORIDE LEVEL 98 MEQ/L (98-107); CHOLESTEROL LEVEL 173 MG/DL (<200); CREATININE FOR GFR 0.61 MG/DL (0.70-1.30); GLOMERULAR FILTRATION RATE > 60.0 (>49); GLUCOSE, FASTING 173 MG/DL (70-100); HDL CHOLESTEROL 50 MG/DL (>40); NON-HDL-C 123 MG/DL; POTASSIUM SERUM 4.1 MEQ/L (3.5-5.1); SODIUM LEVEL 137 MEQ/L (136-145); TOTAL PROTEIN 7.3 GM/DL (6.4-8.2); TRIGLYCERIDES LEVEL 489 MG/DL (<150)
== END ==
LOC: M LAB 07:32
PROVIDERS: ATTEND Family Medicine
DX: E78.1 Pure hyperglyceridemia (principal)

== ENCOUNTER 2021-07-31 12:40 | Emergency (ER) | payer MEDICARE, OTHER ==
[~2021-07-31] VITALS: Ht 172.7 cm; Wt 115.2 kg
[2021-07-31 12:47] VITALS: BP 142/86
--- OUTSIDE RECORDS SUMMARY | 2021-07-31 12:48 | CCD ---
Author Author [facility] Organization [facility] Address Unknown Phone Unavailable Care Team Providers Care Bench Repair Technician Name Role Phone Conrad Xie Unavailable PROBLEMS Type Condition ICD9-CM Code ILE34-AF Code Onset Dates Condition S tatus W/U Status Risk SNOMED Code Notes Problem Supraspinatus tendonitis, left M75.92 Active confir med 153634589 Problem Essential hypertension with goal blood pressure less t gordon 140\/90 I10 Active confirmed 87942182 Problem Hemorrhagic cerebrovascular accident (CVA) I61.9 Active confirmed 752568389 Problem Mixed hyperlipidemia E78.2 Active confirmed 927816713 Problem Type 2 diabetes mellitus without complication E11. 9 Active confirmed 883677653 Problem Primary osteoarthritis of left shoulder M19.012 Active confirmed 08560841 Problem Chronic left shoulder pain M25.512 Active confirmed 706745118 Problem Type 2 diabetes mellitus wit hout complication, without long-term current use of insulin E11.9 Active confirmed 419249091 Problem Hypertriglyceridemia E78.1 Active confirmed 596941484 Problem Incomplete tear of left rotator cuff M75.112 Act sam confirmed 628677893 Problem Essential hypertension I10 Active confirmed 75348121 Problem Constipation, unspecified constipation type K59.00 Active confirmed 87056271 Problem BPH loc w urin obs/LUTS N40.1 Active confirmed 863644634 Problem Benign prostatic hyperplasia with lower urinary tract symptoms N40.1 Active confirmed 786209969 Problem Hyperlipidemia, unspecified hyperlipidemia type E7 8.5 Active confirmed 23091228 Problem Controlled type 2 diabetes m ellitus without complication, without long- term current use of insulin E11.9 Active confirmed 31 9227308 Problem Other chronic pain G89.29 Active confirmed 8 4526810 Problem Uncontrolled hypertension I10 Active confirmed 79237747 Problem Obesity (BMI 30-39.9) E66.9 Active confirmed 192133440 Problem Body mass index (BMI) of 40.0-44.9 in adult Z68.41 Active confirmed 977461211 Problem Morbid (severe) obesity due to excess calories E66 .01 Active confirmed 46569581056301 Problem Fatty liver K76.0 Active confirmed 40250075 7 Problem Lactose intolerance E73.9 Active confirmed 147106135 Problem Gastroesophageal reflux disease without esophagitis K21.9 Active confirmed 958923862 Problem History of rotator cuff surgery Z98.89 Active confi rmed 991590437 Problem Benign prostatic hyperplasia without lower urinary tract symptoms, unspecified morphology N40.0 Active confirmed 7870781 07 Problem Chronic GERD K21.9 Active confirmed 2984123 09 Problem Occlusion of vertebral artery, unspecified laterality I65.09 Active confirmed 151220513 Problem 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 Activ e confirmed 041222194161522 Problem Allergic rhinitis, unspecified seasonality, unspecifie d trigger J30.9 Active confirmed 66847629 ALLERGIES Allergen (clinical drug ingredient) Drug/Non Drug Allergy do cumented on EMR Reaction Allergy Type Onset Date Status metformin Metformin Nausea/Vomiting Drug Allergy Active Lactose([facility] Code:[address]-47) GI upset Drug Allergy Active ENCOUNTERS from 1955 to 2021-07-10 Encounter Location Date Provider Diagnosis [facility] [address] [facility] [phone] [place] [address] 22 Jun, 2021 Conrad Xie Benign prostatic hyperplasia without lower urinary tract symptoms, unspecified morphology N40.0 IMMUNIZATIONS Vaccine Route Administration Date Status Influenza 18 yrs & older Flublok IM Intramuscular Aug 03, 2018 Administered Pneumococcal Adult 0.5mL Pneumovax 23 IM Intramuscular Nov 05 018 Administered Pfizer #1 dose COVID-19(given elsewhere) SARSCOV2 VAC 30MCG/0.3ML IM IM Intramuscular Nov 17, 2020 Administered Pfizer #2 dose COVID-19(given elsewhere) SARSCOV2 VAC 30MCG/0.3ML IM IM Intramuscular Dec 08, 2020 Administered TDAP 0.5mL (Boostrix) IM Intramuscular Sep 29, 2016 Administe red Pneumococcal 0.5mL Prevnar 13 IM Intramuscular Sep 29, 2016 A dministered Influenza 18 yrs & older Flublok IM Intramuscular Aug 25, 2019 Administered Influenza 6mo & up Fluzone IM Intramuscular Nov 05, 2017 Admi nistered Influenza 18 yrs & older Flublok IM Intramuscular Sep 11, 2020 Administered Influenza 6mo & up Fluzone IM Intramuscular Sep 29, 2016 Admi nistered Influenza 6mo & up Fluzone Unknown May 22, 2016 Other s SOCIAL HISTORY Tobacco Use: Social History Observation Description Date Details (start date - stop date) Former Smoker Sex Assigned At : Social History Observation Description Sex Assigned At Unknown Education: Question Answer Notes Level of Education: High School Audit Question Answer Notes Total Score: 0 Interpretation: Alcohol Education Language: Question Answer Notes Languages spoken: Irish Worship: Question Answer Notes Worship 33 None Drug and Alcohol Question Answer Notes Total Score: 0 Interpretation: No problems reported Alcohol Screening: Question Answer Notes Did you have a drink containing alcohol in the past year? No Points 0 Interpretation Negative BMI Care Goal Follow-Up Question Answer Notes Above Normal BMI Follow-Up Dietary management educatio n, guidance, and counseling Tobacco Use: Question Answer Notes Are you a: former smoker How long has it been since you last smoked? > 10 years REASON FOR REFERRAL No Information VITAL SIGNS No information MEDICATIONS Medication SIG (Take, Route, Frequency, Duration) Notes Start Da te End Date Status glyBURIDE 5 MG 1 tablets Orally BID for 90 days Active Metamucil 28.3 % as directed Orally Daily for 30 days 21 M 2019 Active Multivitamin Adult - 1 tablet Orally Once a day Active RABEprazole Sodium 20 MG 1 tablet Orally Once a day for 30 d ay(s) Start daily, if not controlled after a week may increase to twice a dayStop protonix Mar, Active Tamsulosin HCl 0.4 MG 2 cap Orally once daily at night for 90 days Active Carvedilol 25 MG 1 tab Orally bid for 90 days Active Protonix 20 MG 1 tablet Orally bid for 30 day(s) February, Active Glucometer E11.9 as directed for 30 day(s) ok to rubi bstitute any formulary preferred or availlable brand Apr, Active Losartan Potassium 50 MG 1 tablet Orally Once a day for 90 days Nov, Active Clopidogrel Bisulfate 75 MG 1 tablet Orally Once a day for 90 days Active Finasteride 5 MG 1 tablet Orally Once a day for 90 day(s) February, Active Blood Glucose Test - e11.9 as directed In Vitro BID for 90 d ay(s) ok to substitute any formulary preferred or availlable brand Apr, Active Rosuvastatin Calcium 40 MG 1 tablet Orally Once a day for 90 day s Nov, Active Lancets - e11.9 as directed bid for 90 day(s) ok t o substitute any formulary preferred or availlable brand Apr, Active Claritin 10 MG 1 tablet Orally Once a day for 90 day(s) February, Active Jardiance 25 MG 1 tablet Orally Once a day for 90 days Nov, Active amLODIPine Besylate 10 MG 1 tablet Orally Once a day for 90 days Active Chlorthalidone 25 MG 1 tablet in the morning with food Orally Once a day for 90 day(s) Jun, Active PROCEDURES No Information RESULTS No Results REASON FOR VISIT Refill MEDICAL (GENERAL) HISTORY Type Description Date Medical History Essential hypertension with goal blood pressure less than 140\/90 Medical History Type 2 diabetes mellitus without complic ation Medical History Mixed hyperlipidemia Medical History Mixed hyperlipidemia due to type 2 diabe melissa mellitus Medical History Hemorrhagic cerebrovascular accident (CV A) Medical History Chronic left shoulder pain Medical History Benign prostatic hyperplasia without lower urinary tract symptoms, unspecified morphology Medical History Lactose intolerance Medical History Incomplete tear of left rotator cuff Medical History Supraspinatus tendonitis, left Medical History History of rotator cuff surgery Medical History GERD Medical History KIDNEY STONES Medical History URETEROLITHIASIS Medical History HYDRONEPHROSIS Medical History Covid 19 vaccination Surgical History abcess removed from back of right calf Surgical History abcess removed from chest Surgical History left shoulder repaired Surgical History tip of left hand middle finger removed Surgical History fisures Hospitalization History [facility] - stroke 2012 Goals Section No Information Health Concerns No Information MEDICAL EQUIPMENT No Information MENTAL STATUS No Information FUNCTIONAL STATUS No Information ASSESSMENTS Encounter Date Diagnosis Assessment Notes Treatment Notes Treatm ent Clinical Notes Jun, Benign prostatic hyperplasia without lower urinary tract symptoms, unspecified morphology (ICD-10 - N40.0) PLAN OF TREATMENT Medication Medication Name Sig Start Date Stop Date Losartan Potassium 50 MG 1 tablet Orally Once a day for 90 days Nov, Jardiance 25 MG 1 tablet Orally Once a day for 90 days Nov, 2 021 RABEprazole Sodium 20 MG 1 tablet Orally Once a day for 30 day(s ) Mar, Protonix 20 MG 1 tablet Orally bid for 30 day(s) February, Tamsulosin HCl 0.4 MG 2 cap Orally once daily at night for 90 da ys Chlorthalidone 25 MG 1 tablet in the morning with food Orally Once a day for 90 day(s) Jun, Insurance Providers Payer Name Payer Address Payer Phone Insured Name Patient Relati onship to Insured Coverage Start Date Coverage End Date [facility] [employer] [address] [address] [facility] [address] [phone] KAYLEIGH DUDLEY self [facility] [address] [facility] [id number] KAYLEIGH DUDLEY self
--- OUTSIDE RECORDS SUMMARY | 2021-07-31 12:48 | CCD ---
Author Author [facility] Organization [facility] Address Unknown Phone Unavailable Care Team Providers Care Quality Rn Name Role Phone Conrad Xie Unavailable PROBLEMS Type Condition ICD9-CM Code EMD30-MR Code Onset Dates Condition S tatus W/U Status Risk SNOMED Code Notes Problem Supraspinatus tendonitis, left M75.92 Active confir med 419654728 Problem Essential hypertension with goal blood pressure less t gordon 140\/90 I10 Active confirmed 23554077 Problem Hemorrhagic cerebrovascular accident (CVA) I61.9 Active confirmed 920920283 Problem Mixed hyperlipidemia E78.2 Active confirmed 539751559 Problem Type 2 diabetes mellitus without complication E11. 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 Active confirmed 31953780 Problem Chronic left shoulder pain M25.512 Active confirmed 127543580 Problem Type 2 diabetes mellitus wit hout complication, without long-term current use of insulin E11.9 Active confirmed 953689909 Problem Hypertriglyceridemia E78.1 Active confirmed 938011066 Problem Incomplete tear of left rotator cuff M75.112 Act sam confirmed 559892561 Problem Essential hypertension I10 Active confirmed 76368710 Problem Constipation, unspecified constipation type K59.00 Active confirmed 44966968 Problem BPH loc w urin obs/LUTS N40.1 Active confirmed 412267524 Problem Benign prostatic hyperplasia with lower urinary tract symptoms N40.1 Active confirmed 887904440 Problem Hyperlipidemia, unspecified hyperlipidemia type E7 8.5 Active confirmed 31978438 Problem Controlled type 2 diabetes m ellitus without complication, without long- term current use of insulin E11.9 Active confirmed 31 6347238 Problem Other chronic pain G89.29 Active confirmed 8 3478371 Problem Uncontrolled hypertension I10 Active confirmed 64470724 Problem Obesity (BMI 30-39.9) E66.9 Active confirmed 286415535 Problem Body mass index (BMI) of 40.0-44.9 in adult Z68.41 Active confirmed 074869779 Problem Morbid (severe) obesity due to excess calories E66 .01 Active confirmed 75119021877551 Problem Fatty liver K76.0 Active confirmed 38926753 7 Problem Lactose intolerance E73.9 Active confirmed 775647554 Problem Gastroesophageal reflux disease without esophagitis K21.9 Active confirmed 908577759 Problem History of rotator cuff surgery Z98.89 Active confi rmed 593437547 Problem Benign prostatic hyperplasia without lower urinary tract symptoms, unspecified morphology N40.0 Active confirmed 7196326 07 Problem Chronic GERD K21.9 Active confirmed 7217969 09 Problem Occlusion of vertebral artery, unspecified laterality I65.09 Active confirmed 096423974 Problem 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 Activ e confirmed 550525100697934 Problem Allergic rhinitis, unspecified seasonality, unspecifie d trigger J30.9 Active confirmed 52863215 ALLERGIES Allergen (clinical drug ingredient) Drug/Non Drug Allergy do cumented on EMR Reaction Allergy Type Onset Date Status metformin Metformin Nausea/Vomiting Drug Allergy Active Lactose([facility] Code:[address]-63) GI upset Drug Allergy Active ENCOUNTERS from 1955 to 2021-07-23 Encounter Location Date Provider Diagnosis [facility] [address] [facility] [phone] [place] [address] Jul, Conrad Xie Benign prostatic hyperplasia without lower urinary tract symptoms, unspecified morphology N40.0 and Essential hypertension I10 IMMUNIZATIONS Vaccine Route Administration Date Status Influenza 18 yrs & older Flublok IM Intramuscular Sep 11, 2020 Administered Influenza 18 yrs & older Flublok IM Intramuscular Aug 25, 2019 Administered Influenza 18 yrs & older Flublok IM Intramuscular Aug 03, 2018 Administered Pneumococcal Adult 0.5mL Pneumovax 23 IM Intramuscular Nov 05, 018 Administered TDAP 0.5mL (Boostrix) IM Intramuscular Sep 29, 2016 Administe red Pneumococcal 0.5mL Prevnar 13 IM Intramuscular Sep 29, 2016 A dministered Pfizer #2 dose COVID-19(given elsewhere) SARSCOV2 VAC 30MCG/0.3ML IM IM Intramuscular Dec 08, 2020 Administered Influenza 6mo & up Fluzone IM Intramuscular Nov 05, 2017 Admi nistered Pfizer #1 dose COVID-19(given elsewhere) SARSCOV2 VAC 30MCG/0.3ML IM IM Intramuscular Nov 17, 2020 Administered Influenza 6mo & up Fluzone [...] Education Language: Question Answer Notes Languages spoken: Albanian Catholic: Question Answer Notes Catholic 33 None Drug and Alcohol Question Answer [...] a day for 90 days Nov, Active Finasteride 5 MG 1 tablet Orally Once a day for 90 day(s) February, Active Clopidogrel Bisulfate 75 MG 1 tablet Orally Once a day for 90 days Active Blood Glucose Test - e11.9 as directed In Vitro BID for 90 d ay(s) ok to substitute any formulary preferred or availlable brand Apr, Active Rosuvastatin Calcium 40 MG 1 tablet Orally Once a day for 90 day s Nov, Active amLODIPine Besylate 10 MG 1 tablet Orally Once a day for 90 days Active Claritin 10 MG 1 tablet Orally Once a day for 90 day(s) February, Active Jardiance 25 MG 1 tablet Orally Once a day for 90 days Nov, Active Lancets - e11.9 as directed bid for 90 day(s) ok t o substitute any formulary preferred or availlable brand Apr, Active Chlorthalidone 25 MG 1 tablet in the morning with food Orally Once a day for 90 day(s) Jun, Active PROCEDURES No Information RESULTS No Results REASON FOR VISIT refills MEDICAL (GENERAL) HISTORY Type Description Date Medical [...] Notes Treatment Notes Treatm ent Clinical Notes Jul, Benign prostatic hyperplasia without lower urinary tract symptoms, unspecified morphology (ICD-10 - N40.0) Jul, Essential hypertension (ICD-10 - I10) PLAN OF TREATMENT Medication Medication Name Sig Start Date Stop Date Losartan Potassium 50 MG 1 tablet Orally Once a day for 90 days Nov, Jardiance 25 MG 1 tablet Orally Once a day for 90 days 25 Feb, 2 021 amLODIPine Besylate 10 MG 1 tablet Orally Once a day for 90 days Protonix 20 MG 1 tablet Orally bid for 30 day(s) February, Clopidogrel Bisulfate 75 MG 1 tablet Orally Once a day for 90 da ys RABEprazole Sodium 20 MG 1 tablet Orally Once a day for 30 day(s ) Mar, Tamsulosin HCl 0.4 MG 2 cap Orally once daily at night for 90 da ys Chlorthalidone 25 MG 1 tablet in the morning with food Orally Once a day for 90 day(s) Jun, Insurance Providers Payer Name Payer Address Payer Phone Insured Name Patient Relati onship to Insured Coverage Start Date Coverage End Date [facility] [address] [facility] [id number] [address] DUDLEY self [facility] [address] [address] [facility] [address] [phone] KAYLEIGH DUDLEY self
--- OUTSIDE RECORDS SUMMARY | 2021-07-31 12:49 | CCD ---
Author Author [facility] Organization 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 9 Active confirmed 064165402 Problem Primary osteoarthritis of left shoulder M19.012 Active confirmed 62781303 Problem Chronic left shoulder pain M25.512 Active confirmed 273144250 Problem Type 2 diabetes mellitus wit hout complication, without long-term current use of insulin E11.9 Active confirmed 296104198 Problem Hypertriglyceridemia E78.1 Active confirmed 684849197 Problem Incomplete tear of left rotator cuff M75.112 Act sam confirmed 906611704 Problem Essential hypertension I10 Active confirmed 17953299 Problem Constipation, unspecified constipation type K59.00 Active confirmed 17465489 Problem BPH loc w urin obs/LUTS N40.1 Active confirmed 416155381 Problem Benign prostatic hyperplasia with lower urinary tract symptoms N40.1 Active confirmed 514512259 Problem Hyperlipidemia, unspecified hyperlipidemia type E7 8.5 Active confirmed 99956867 Problem Controlled type 2 diabetes m ellitus without complication, without long- term current use of insulin E11.9 Active confirmed 31 0539344 Problem Other chronic pain G89.29 Active confirmed 8 6938291 Problem Uncontrolled hypertension I10 Active confirmed 87737660 Problem Obesity (BMI 30-39.9) E66.9 Active confirmed 678995693 Problem Body mass index (BMI) of 40.0-44.9 in adult Z68.41 Active confirmed 214495140 Problem Morbid (severe) obesity due to excess calories E66 .01 Active confirmed 08543365905368 Problem Fatty liver K76.0 Active confirmed 08598389 7 Problem Lactose intolerance E73.9 Active confirmed 848955621 Problem Gastroesophageal reflux disease without esophagitis K21.9 Active confirmed 704713207 Problem History of rotator cuff surgery Z98.89 Active confi rmed 604243026 Problem Benign prostatic hyperplasia without lower urinary tract symptoms, unspecified morphology N40.0 Active confirmed 7472919 07 Problem Chronic GERD K21.9 Active confirmed 0202150 09 Problem Occlusion of vertebral artery, unspecified laterality I65.09 Active confirmed 246294425 Problem 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 Activ e confirmed 319732913075260 Problem Allergic rhinitis, unspecified seasonality, unspecifie d trigger J30.9 Active confirmed 48229298 ALLERGIES Allergen (clinical drug ingredient) Drug/Non Drug Allergy do cumented on EMR Reaction Allergy Type Onset Date Status metformin Metformin Nausea/Vomiting Drug Allergy Active Lactose([facility] Code:[address]-35) GI upset Drug Allergy Active ENCOUNTERS from 1955 to 2021-06-26 Encounter Location Date Provider Diagnosis [facility] [address] [facility] [phone] [place] [address] 07 Jun, 2021 Conrad Xie IMMUNIZATIONS Vaccine Route Administration Date Status Influenza 18 yrs & older Flublok IM Intramuscular Sep 11, 2020 Administered Influenza 18 yrs & older Flublok IM Intramuscular Aug 25, 2019 Administered Influenza 18 yrs & older Flublok IM Intramuscular Aug 03, 2018 Administered Pneumococcal Adult 0.5mL Pneumovax 23 IM Intramuscular Nov 05 018 Administered TDAP 0.5mL (Boostrix) IM Intramuscular [...] Education Language: Question Answer Notes Languages spoken: [place] Islander Anabaptist: Question Answer Notes Anabaptist 33 None Drug and Alcohol Question Answer [...] Notes Start Da te End Date Status Metamucil 28.3 % as directed Orally Daily for 30 days 21 M 2019 Active Chlorthalidone 25 MG 1 tablet in the morning with food Orally Once a day for 90 day(s) Jun, Active Multivitamin Adult - 1 tablet Orally Once a day Active Tamsulosin HCl 0.4 MG 2 cap Orally once daily at night for 90 days Active glyBURIDE 5 MG 1 tablets Orally BID for 90 days Active Carvedilol 25 MG [...] a day for 90 day(s) February, Active RABEprazole Sodium 20 MG 1 tablet Orally Once a day for 30 d ay(s) Start daily, if not controlled after a week may increase to twice a dayStop protonix Mar, Active Blood Glucose Test - e11.9 as directed In Vitro BID for 90 d ay(s) ok to substitute any formulary preferred or availlable brand Apr, Active Claritin 10 MG 1 tablet Orally Once a day for 90 day(s) February, Active Lancets - e11.9 as directed bid for 90 day(s) ok t o substitute any formulary preferred or availlable brand Apr, Active Clopidogrel Bisulfate 75 MG 1 tablet Orally Once a day for 90 days Active Jardiance 25 MG 1 tablet Orally Once a day for 90 days Nov, Active amLODIPine Besylate 10 MG 1 tablet Orally Once a day for 90 days Active Rosuvastatin Calcium 40 MG 1 tablet Orally Once a day for 90 day s Nov, Active PROCEDURES No Information RESULTS No Results REASON FOR VISIT neurology MEDICAL (GENERAL) HISTORY Type Description Date Medical [...] No Information FUNCTIONAL STATUS No Information ASSESSMENTS No Information PLAN OF TREATMENT Medication Medication Name Sig Start Date Stop Date Losartan Potassium 50 MG 1 tablet Orally Once a day for 90 days Nov, Jardiance 25 MG 1 tablet Orally Once a day for 90 days Nov, 021 RABEprazole Sodium 20 MG 1 tablet Orally Once a day for 30 day(s ) Mar, Protonix 20 MG 1 tablet Orally bid for 30 day(s) February, Chlorthalidone 25 MG 1 tablet in the morning with food Orally Once a day for 90 day(s) 25 Sep, 2019 Insurance Providers Payer Name Payer Address Payer Phone Insured Name Patient Relati onship to Insured Coverage Start Date Coverage End Date [facility] [address] [address] [facility] [address] [phone] KAYLEIGH DUDLEY self [facility] [address] [facility] [address] [place]UDLEY self
--- OUTSIDE RECORDS SUMMARY | 2021-07-31 12:49 | CCD ---
Author Author [facility] Organization 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 Active confirmed 07434574 Problem Chronic left shoulder pain M25.512 Active confirmed 261043776 Problem Type 2 diabetes mellitus wit hout complication, without long-term current use of insulin E11.9 Active confirmed 206997433 Problem Hypertriglyceridemia E78.1 Active confirmed 810709762 Problem Incomplete tear of left rotator cuff M75.112 Act sam confirmed 384076403 Problem Essential hypertension I10 Active confirmed 51753092 Problem Constipation, unspecified constipation type K59.00 Active confirmed 52589079 Problem BPH loc w urin obs/LUTS N40.1 Active confirmed 455680895 Problem Benign prostatic hyperplasia with lower urinary tract symptoms N40.1 Active confirmed 071590965 Problem Hyperlipidemia, unspecified hyperlipidemia type E7 8.5 Active confirmed 87528933 Problem Controlled type 2 diabetes m ellitus without complication, without long- term current use of insulin E11.9 Active confirmed 31 1221988 Problem Other chronic pain G89.29 Active confirmed 8 2201465 Problem Uncontrolled hypertension I10 Active confirmed 09256482 Problem Obesity (BMI 30-39.9) E66.9 Active confirmed 226989867 Problem Body mass index (BMI) of 40.0-44.9 in adult Z68.41 Active confirmed 346298158 Problem Morbid (severe) obesity due to excess calories E66 .01 Active confirmed 82624124341050 Problem Fatty liver K76.0 Active confirmed 23437627 7 Problem Lactose intolerance E73.9 Active confirmed 759339809 Problem Gastroesophageal reflux disease without esophagitis K21.9 Active confirmed 532536381 Problem History of rotator cuff surgery Z98.89 Active confi rmed 710703060 Problem Benign prostatic hyperplasia without lower urinary tract symptoms, unspecified morphology N40.0 Active confirmed 6031778 07 Problem Chronic GERD K21.9 Active confirmed 1391824 09 Problem Occlusion of vertebral artery, unspecified laterality I65.09 Active confirmed 464083820 Problem 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 Activ e confirmed 455050968303367 Problem Allergic rhinitis, unspecified seasonality, unspecifie d trigger J30.9 Active confirmed 05335235 ALLERGIES Allergen (clinical drug ingredient) Drug/Non Drug Allergy do cumented on EMR Reaction Allergy Type Onset Date Status metformin Metformin Nausea/Vomiting Drug Allergy Active Lactose([facility] Code:[address]-53) GI upset Drug Allergy Active ENCOUNTERS from 1955 to 2021-06-25 Encounter Location Date Provider Diagnosis [facility] [address] [facility] [phone] [place] [address] Jun, 2021 Conrad Xie Essential hypertension I10 a nd Type 2 diabetes mellitus without complication E11.9 IMMUNIZATIONS Vaccine Route Administration Date Status Influenza 18 yrs & older Flublok IM Intramuscular Aug 03, 2018 Administered Pneumococcal Adult 0.5mL Pneumovax 23 IM Intramuscular Nov 05 018 Administered TDAP 0.5mL (Boostrix) IM Intramuscular Sep 29, 2016 Administe red Pfizer #1 dose COVID-19(given elsewhere) SARSCOV2 VAC 30MCG/0.3ML IM IM Intramuscular Nov 17, 2020 Administered Pfizer #2 dose COVID-19(given elsewhere) SARSCOV2 VAC 30MCG/0.3ML IM IM Intramuscular Dec 08, 2020 Administered Pneumococcal 0.5mL Prevnar 13 IM Intramuscular Sep [...] Education Language: Question Answer Notes Languages spoken: Greek Sabianism: Question Answer Notes Sabianism 33 None Drug and Alcohol Question Answer [...] Information RESULTS No Results REASON FOR VISIT refill MEDICAL (GENERAL) HISTORY Type Description Date Medical [...] Treatment Notes Treatm ent Clinical Notes Jun, Essential hypertension (ICD-10 - I10) Jun, Type 2 diabetes mellitus without complication (I CD-10 - E11.9) PLAN OF TREATMENT Medication Medication Name Sig [...] Insured Coverage Start Date Coverage End Date [facility] [address] [facility] [id number] [address]UD[address] self [facility] PLANS [address] [address] [facility] [address] KAYLEIGH DUDLEY self
--- OUTSIDE RECORDS SUMMARY | 2021-07-31 12:49 | CCD ---
Author Author [facility] Organization [facility] Address Unknown Phone Unavailable Care Team Providers Care Cartridge Gauger Name Role Phone Charlebois, A Nitza RPA C Unavailable Unavailable Charlebois, A Nitza RPA C Unavailable Unavailable Charlebois, A Nitza RPA C Unavailable Unavailable Charlebois, A Nitza RPA C Unavailable Unavailable Charlebois, A Nitza RPA C Unavailable Unavailable Charlebois, A Nitza RPA C Unavailable Unavailable Charlebois, A Nitza RPA C Unavailable Unavailable Charlebois, A Nitza RPA C Unavailable Unavailable Charlebois, A Nitza RPA C Unavailable Unavailable Charlebois, A Nitza RPA C Unavailable Unavailable Charlebois, A Nitza RPA C Unavailable Unavailable Charlebois, A Nitza RPA C Unavailable Unavailable Charlebois, A Nitza RPA C Unavailable Unavailable Charlebois, A Nitza RPA C Unavailable Unavailable Charlebois, A Nitza RPA C Unavailable Unavailable Charlebois, A Nitza RPA C Unavailable Unavailable Charlebois, A Nitza RPA C Unavailable Unavailable Charlebois, A Nitza RPA C Unavailable Unavailable Charlebois, A Nitza RPA C Unavailable Unavailable Charlebois, A Nitza RPA C Unavailable Unavailable Charlebois, A Nitza RPA C Unavailable Unavailable Charlebois, A Nitza RPA C Unavailable Unavailable Charlebois, A Nitza RPA C Unavailable Unavailable Charlebois, A Nitza RPA C Unavailable Unavailable Charlebois, A Nitza RPA C Unavailable Unavailable Charlebois, A Nitza RPA C Unavailable Unavailable Charlebois, A Nitza RPA C Unavailable Unavailable Charlebois, A Nitza RPA C Unavailable Unavailable Charlebois, A Nitza RPA C Unavailable Unavailable Charlebois, A Nitza RPA C Unavailable Unavailable Charlebois, A Nitza RPA C Unavailable Unavailable Charlebois, A Nitza RPA C Unavailable Unavailable ELINA, DIMAS JOSTIN PLASMA SPECIALIST-C Unavailable Unavailable ELINA, DIMAS JOSTIN PLASMA SPECIALIST-C Unavailable Unavailable ELINA, DIMAS JOSTIN PLASMA SPECIALIST-C Unavailable Unavailable ELINA, DIMAS JOSTIN PLASMA SPECIALIST-C Unavailable Unavailable ELINA, DIMAS JOSTIN PLASMA SPECIALIST-C Unavailable Unavailable ELINA, DIMAS JOSTIN PLASMA SPECIALIST-C Unavailable Unavailable ELINA, DIMAS JOSTIN PLASMA SPECIALIST-C Unavailable Unavailable ELINA, DIMAS JOSTIN PLASMA SPECIALIST-C Unavailable Unavailable ELINA, DIMAS JOSTIN PLASMA SPECIALIST-C Unavailable Unavailable ELINA, DIMAS JOSTIN PLASMA SPECIALIST-C Unavailable Unavailable ELINA, DIMAS JOSTIN PLASMA SPECIALIST-C Unavailable Unavailable ELINA, DIMAS JOSTIN PLASMA SPECIALIST-C Unavailable Unavailable ELINA, DIMAS JOSTIN PLASMA SPECIALIST-C Unavailable Unavailable ELINA, DIMAS JOSTIN PLASMA SPECIALIST-C Unavailable Unavailable ELINA, DIMAS JOSTIN PLASMA SPECIALIST-C Unavailable Unavailable ELINA, DIMAS JOSTIN PLASMA SPECIALIST-C Unavailable Unavailable ELINA, DIMAS JOSTIN PLASMA SPECIALIST-C Unavailable Unavailable Re-disclosure Warning The records that you are about to access may contain information from federally-assisted alcohol or drug abuse programs. If such information is present, then the following federally mandated warning applies: This information has been disclosed to you from records protected by federal confidentiality rules (42 CFR part 2). The federal rules prohibit you from making any further disclosure of this information unless further disclosure is expressly permitted by the written consent of the person to whom it pertains or as otherwise permitted by 42 CFR part 2. A general authorization for the release of medical or other information is NOT sufficient for this purpose. The Federal rules restrict any use of the information to criminally investigate or prosecute any alcohol or drug abuse patient.The records that you are about to access may contain highly sensitive health information, the redisclosure of which is protected by Article 27-F of the [facility] Public Health law. If you continue you may have access to information: Regarding HIV / AIDS; Provided by facilities licensed or operated by the [facility] Office of Mental Health; or Provided by the [facility] Office for People With Developmental Disabilities. If such information is present, then the following [facility] mandated warning applies: This information has been disclosed to you from confidential records which are protected by state law. State law prohibits you from making any further disclosure of this information without the specific written consent of the person to whom it pertains, or as otherwise permitted by law. Any unauthorized further disclosure in violation of state law may result in a fine or mcfp sentence or both. A general authorization for the release of medical or other information is NOT sufficient authorization for further disc losure. Family History Family Member Name Family Member Gender Family Member Status Date o f Status Description Data Source(s) Unknown Male Problem MEDENT ([facility]) Unknown Male Problem MEDENT ([facility]) Unknown Male Problem MEDENT ([facility]) Unknown Male Problem MEDENT ([facility]) Encounters Encounter Providers Location Date Indications Data Source(s ) [place] [address] [facility] [address] 07/23/2021 12:00:00 AM EDT [facility]1 [facility]) [place] [address] [facility] [place] [address] 07/10/2021 12:00:00 AM EDT [facility]CW1 ([facility]) [place] [address] [facility] [place] [address] 06/25/2021 12:00:00 AM EDT eCW1 ([facility]) [place] [address] [facility] [place] [address] 06/25/2021 12:00:00 AM EDT eCW1 ([facility]) [place] [address] [facility] [address] 04/23/2021 12:00:00 AM EDT eCW1 ([facility]) [place] [address] [facility] [address] 04/15/2021 12:00:00 AM EDT eCW1 ([facility]) [place] [address] [facility] [address] 04/15/2021 12:00:00 AM EDT eCW1 ([facility]) Outpatient Attender: Nitza Harding/Monae/Keri cardoso/Santi 04/05/2021 02:30:00 PM EDT MEDENT ([facility] MARICHUY Quinn) [place] [address] [facility] [address] 03/20/2021 12:00:00 AM EDT eCW1 ([facility]) [place] [address] [facility] [address] 03/13/2021 12:00:00 AM EDT eCW1 ([facility]) [place] [address] [facility] [address] 03/13/2021 12:00:00 AM EDT eCW1 ([facility]) Outpatient [address] [facility] [address] 03/12/2021 12:00:00 AM EDT eCW1 ([facility]) Outpatient Attender: JOSTIN Harding/Monae/Osvaldo/Lida pino 01/29/2021 01:15:00 PM EDT MEDENT ([facility] MARICHUY Guzman) Outpatient [address] [facility] [address] 12/13/2020 12:00:00 AM EST eCW1 ([facility]) [place] [address] [facility] [address] 12/13/2020 12:00:00 AM EST eCW1 ([facility]) [place] [address] [facility] [address] 11/14/2020 12:00:00 AM EST eCW1 ([facility]) Unknown [address] [facility] [address] 10/03/2020 12:00:00 AM EST eCW1 ([facility]) Unknown [address] [facility] [address] 09/18/2020 12:00:00 AM EST eCW1 ([facility]) Outpatient [address] [facility] [address] 09/11/2020 12:00:00 AM EST eCW1 ([facility]) Immunizations Vaccine Date Status Description Data Source(s) COVID-19 dose #2 given elsewhere Unspecified 12/08/2020 03:3 6:00 PM EST completed eCW1 ([facility]) COVID-19 dose #2 given elsewhere Unspecified 12/08/2020 03:3 6:00 PM EST completed eCW1 ([facility]) Pfizer #2 dose COVID-19(given elsewhere) SARSCOV2 VAC 30MCG/0.3ML IM 12/08/2020 03:26:00 PM EST completed eCW1 ([facility]) Pfizer #2 dose COVID-19(given elsewhere) SARSCOV2 VAC 30MCG/0.3ML IM 12/08/2020 03:26:00 PM EST completed eCW1 ([facility]) Pfizer #2 dose COVID-19(given elsewhere) SARSCOV2 VAC 30MCG/0.3ML IM 12/08/2020 03:26:00 PM EST completed eCW1 ([facility]) Pfizer #2 dose COVID-19(given elsewhere) SARSCOV2 VAC 30MCG/0.3ML IM 12/08/2020 03:26:00 PM EST completed eCW1 ([facility]) Pfizer #2 dose COVID-19(given elsewhere) SARSCOV2 VAC 30MCG/0.3ML IM 12/08/2020 03:26:00 PM EST completed eCW1 ([facility]) Pfizer #2 dose COVID-19(given elsewhere) SARSCOV2 VAC 30MCG/0.3ML IM 12/08/2020 03:26:00 PM EST completed eCW1 ([facility]) Pfizer #2 dose COVID-19(given elsewhere) SARSCOV2 VAC 30MCG/0.3ML IM 12/08/2020 03:26:00 PM EST completed eCW1 ([facility]) Pfizer #2 dose COVID-19(given elsewhere) SARSCOV2 VAC 30MCG/0.3ML IM 12/08/2020 03:26:00 PM EST completed eCW1 ([facility]) Pfizer #2 dose COVID-19(given elsewhere) SARSCOV2 VAC 30MCG/0.3ML IM 12/08/2020 03:26:00 PM EST completed eCW1 ([facility]) Pfizer #2 dose COVID-19(given elsewhere) SARSCOV2 VAC 30MCG/0.3ML IM 12/08/2020 03:26:00 PM EST completed eCW1 ([facility]) Pfizer #2 dose COVID-19(given elsewhere) SARSCOV2 VAC 30MCG/0.3ML IM 12/08/2020 03:26:00 PM EST completed eCW1 ([facility]) COVID-19 VACCINE Pfizer 12/08/2020 12:00:00 AM EST completed [employer] Vaccine Series Complete: YESThis Data wa s Submitted to [facility] Via [employer]. COVID-19 VACCINE, MRNA, [id number], LNP-S ([facility])/PF 12/08/19 21 12:00:00 AM EST completed [facility] COVID-19 dose #1 given elsewhere Unspecified 11/17/2020 03:3 5:00 PM EST completed eCW1 ([facility]) COVID-19 dose #1 given elsewhere Unspecified 11/17/2020 03:3 5:00 PM EST completed eCW1 ([facility]) Pfizer #1 dose COVID-19(given elsewhere) SARSCOV2 VAC 30MCG/0.3ML IM 11/17/2020 03:24:00 PM EST completed eCW1 ([facility]) Pfizer #1 dose COVID-19(given elsewhere) SARSCOV2 VAC 30MCG/0.3ML IM 11/17/2020 03:24:00 PM EST completed eCW1 ([facility]) Pfizer #1 dose COVID-19(given elsewhere) SARSCOV2 VAC 30MCG/0.3ML IM 11/17/2020 03:24:00 PM EST completed eCW1 ([facility]) Pfizer #1 dose COVID-19(given elsewhere) SARSCOV2 VAC 30MCG/0.3ML IM 11/17/2020 03:24:00 PM EST completed eCW1 ([facility]) Pfizer #1 dose COVID-19(given elsewhere) SARSCOV2 VAC 30MCG/0.3ML IM 11/17/2020 03:24:00 PM EST completed eCW1 ([facility]) Pfizer #1 dose COVID-19(given elsewhere) SARSCOV2 VAC 30MCG/0.3ML IM 11/17/2020 03:24:00 PM EST completed eCW1 ([facility]) Pfizer #1 dose COVID-19(given elsewhere) SARSCOV2 VAC 30MCG/0.3ML IM 11/17/2020 03:24:00 PM EST completed eCW1 ([facility]) Pfizer #1 dose COVID-19(given elsewhere) SARSCOV2 VAC 30MCG/0.3ML IM 11/17/2020 03:24:00 PM EST completed eCW1 ([facility]) Pfizer #1 dose COVID-19(given elsewhere) SARSCOV2 VAC 30MCG/0.3ML IM 11/17/2020 03:24:00 PM EST completed eCW1 ([facility]) Pfizer #1 dose COVID-19(given elsewhere) SARSCOV2 VAC 30MCG/0.3ML IM 11/17/2020 03:24:00 PM EST completed eCW1 ([facility]) Pfizer #1 dose COVID-19(given elsewhere) SARSCOV2 VAC 30MCG/0.3ML IM 11/17/2020 03:24:00 PM EST completed eCW1 ([facility]) COVID-19 VACCINE Pfizer 11/17/2020 12:00:00 AM EST completed [employer] Vaccine Series Complete: NOThis Data was Submitted to [facility] Via [employer]. COVID-19 VACCINE, MRNA, [id number], LNP-S ([facility])/PF 11/17/19 21 12:00:00 AM EST completed [facility] influenza, recombinant, quadrIvalent,injectable, prese rvative free 09/11/2020 03:44:00 PM EST completed eCW1 ([facility]) influenza, recombinant, quadrIvalent,injectable, prese rvative free 09/11/2020 03:44:00 PM EST completed eCW1 ([facility]) influenza, recombinant, quadrIvalent,injectable, prese rvative free 09/11/2020 03:44:00 PM EST completed eCW1 ([facility]) influenza, recombinant, quadrIvalent,injectable, prese rvative free 09/11/2020 03:44:00 PM EST completed eCW1 ([facility]) influenza, recombinant, quadrIvalent,injectable, prese rvative free 09/11/2020 03:44:00 PM EST completed eCW1 ([facility]) influenza, recombinant, quadrIvalent,injectable, prese rvative free 09/11/2020 03:44:00 PM EST completed eCW1 ([facility]) influenza, recombinant, quadrIvalent,injectable, prese rvative free 09/11/2020 03:44:00 PM EST completed eCW1 ([facility]) influenza, recombinant, quadrIvalent,injectable, prese rvative free 09/11/2020 03:44:00 PM EST completed eCW1 ([facility]) influenza, recombinant, quadrIvalent,injectable, prese rvative free 09/11/2020 03:44:00 PM EST completed eCW1 ([facility]) influenza, recombinant, quadrIvalent,injectable, prese rvative free 09/11/2020 03:44:00 PM EST completed eCW1 ([facility]) influenza, recombinant, quadrIvalent,injectable, prese rvative free 09/11/2020 03:44:00 PM EST completed eCW1 ([facility]) influenza, recombinant, quadrIvalent,injectable, prese rvative free 09/11/2020 03:44:00 PM EST completed eCW1 ([facility]) influenza, recombinant, quadrIvalent,injectable, prese rvative free 09/11/2020 03:44:00 PM EST completed eCW1 ([facility]) influenza, recombinant, quadrIvalent,injectable, prese rvative free 09/11/2020 03:44:00 PM EST completed eCW1 ([facility]) influenza, recombinant, quadrIvalent,injectable, prese rvative free 09/11/2020 03:44:00 PM EST completed eCW1 ([facility]) influenza, recombinant, quadrIvalent,injectable, prese rvative free 09/11/2020 03:44:00 PM EST completed eCW1 ([facility]) influenza, recombinant, quadrIvalent,injectable, prese rvative free 09/11/2020 03:44:00 PM EST completed eCW1 ([facility]) Medications Medication Brand Name Start Date Product Form Dose Route Admi nistrative Instructions Pharmacy Instructions Status Indications Reaction Description Data Source(s) Rabeprazole sodium 20 MG Delayed Release Oral Tablet R ABEprazole Sodium 20 MG RABEprazole Sodium 20 MG 04/15/2021 12:00:00 AM EDT 1.0 {tablet} active RABEprazole Sodium 20 MG eCW1 ([facility]) Rabeprazole sodium 20 MG Delayed Release Oral Tablet R ABEprazole Sodium 20 MG RABEprazole Sodium 20 MG 04/15/2021 12:00:00 AM EDT 1.0 {tablet} active RABEprazole Sodium 20 MG eCW1 ([facility]) Rabeprazole sodium 20 MG Delayed Release Oral Tablet R ABEprazole Sodium 20 MG RABEprazole Sodium 20 MG 04/15/2021 12:00:00 AM EDT 1.0 {tablet} active RABEprazole Sodium 20 MG eCW1 ([facility]) Rabeprazole sodium 20 MG Delayed Release Oral Tablet R ABEprazole Sodium 20 MG RABEprazole Sodium 20 MG 04/15/2021 12:00:00 AM EDT 1.0 {tablet} active RABEprazole Sodium 20 MG eCW1 ([facility]) Rabeprazole sodium 20 MG Delayed Release Oral Tablet R ABEprazole Sodium 20 MG RABEprazole Sodium 20 MG 04/15/2021 12:00:00 AM EDT 1.0 {tablet} active RABEprazole Sodium 20 MG eCW1 ([facility]) Rabeprazole sodium 20 MG Delayed Release Oral Tablet R ABEprazole Sodium 20 MG RABEprazole Sodium 20 MG 04/15/2021 12:00:00 AM EDT 1.0 {tablet} active RABEprazole Sodium 20 MG eCW1 ([facility]) Rabeprazole sodium 20 MG Delayed Release Oral Tablet R ABEprazole Sodium 20 MG RABEprazole Sodium 20 MG 04/15/2021 12:00:00 AM EDT 1.0 {tablet} active RABEprazole Sodium 20 MG eCW1 ([facility]) Suprep Bowel Prep Kit Suprep Bowel Prep Kit 04/05/2021 12:00:00 AM EDT active MEDENT ([facility], ) Magnesium Hydroxide 80 MG/ML Oral Suspension Milk Of Magnesi a 04/05/2021 12:00:00 AM EDT ORAL active M EDENT ([facility], ) pantoprazole 20 MG Delayed Release Oral Tablet [Proton ix] Protonix 20 MG Protonix 20 MG 03/13/2021 12:00:00 AM EDT 1.0 {tablet} active Protonix 20 MG eCW1 ([facility]) pantoprazole 20 MG Delayed Release Oral Tablet [Proton ix] Protonix 20 MG Protonix 20 MG 03/13/2021 12:00:00 AM EDT 1.0 {tablet} active Protonix 20 MG eCW1 ([facility]) pantoprazole 20 MG Delayed Release Oral Tablet [Proton ix] Protonix 20 MG Protonix 20 MG 03/13/2021 12:00:00 AM EDT 1.0 {tablet} active Protonix 20 MG eCW1 ([facility]) pantoprazole 20 MG Delayed Release Oral Tablet [Proton ix] Protonix 20 MG Protonix 20 MG 03/13/2021 12:00:00 AM EDT 1.0 {tablet} active Protonix 20 MG eCW1 ([facility]) pantoprazole 20 MG Delayed Release Oral Tablet [Proton ix] Protonix 20 MG Protonix 20 MG 03/13/2021 12:00:00 AM EDT 1.0 {tablet} active Protonix 20 MG eCW1 ([facility]) pantoprazole 20 MG Delayed Release Oral Tablet [Proton ix] Protonix 20 MG Protonix 20 MG 03/13/2021 12:00:00 AM EDT 1.0 {tablet} active Protonix 20 MG eCW1 ([facility]) pantoprazole 20 MG Delayed Release Oral Tablet [Proton ix] Protonix 20 MG Protonix 20 MG 03/13/2021 12:00:00 AM EDT 1.0 {tablet} active Protonix 20 MG eCW1 ([facility]) pantoprazole 20 MG Delayed Release Oral Tablet [Proton ix] Protonix 20 MG Protonix 20 MG 03/13/2021 12:00:00 AM EDT 1.0 {tablet} active Protonix 20 MG eCW1 ([facility]) pantoprazole 20 MG Delayed Release Oral Tablet [Proton ix] Protonix 20 MG Protonix 20 MG 03/13/2021 12:00:00 AM EDT 1.0 {tablet} active Protonix 20 MG eCW1 ([facility]) pantoprazole 20 MG Delayed Release Oral Tablet [Proton ix] Protonix 20 MG Protonix 20 MG 03/13/2021 12:00:00 AM EDT 1.0 {tablet} active Protonix 20 MG eCW1 ([facility]) pantoprazole 20 MG Delayed Release Oral Tablet [Proton ix] Protonix 20 MG Protonix 20 MG 03/13/2021 12:00:00 AM EDT 1.0 {tablet} active Protonix 20 MG eCW1 ([facility]) CPAP 02/13/2021 12:00:00 AM EDT active MEDENT ([facility], ) Losartan Potassium 50 MG Oral Tablet Losartan Potassium 50 M G 12/13/2020 12:00:00 AM EST 1.0 {tablet} active Lo sartan Potassium 50 MG eCW1 ([facility]) Rosuvastatin calcium 40 MG Oral Tablet Rosuvastatin Ca lcium 40 MG Rosuvastatin Calcium 40 MG 12/13/2020 12:00:00 AM EST 1.0 {tablet} active Rosuvastatin Calcium 40 MG eCW1 ([facility]) Losartan Potassium 50 MG Oral Tablet Losartan Potassium 50 M G 12/13/2020 12:00:00 AM EST 1.0 {tablet} active Lo sartan Potassium 50 MG eCW1 ([facility]) Rosuvastatin calcium 40 MG Oral Tablet Rosuvastatin Ca lcium 40 MG Rosuvastatin Calcium 40 MG 12/13/2020 12:00:00 AM EST 1.0 {tablet} active Rosuvastatin Calcium 40 MG eCW1 ([facility]) empagliflozin 25 MG Oral Tablet [Jardiance] Jardiance 25 MG Jardiance 25 MG 12/13/2020 12:00:00 AM EST 1.0 {tablet} active Jardiance 25 MG eCW1 ([facility]) empagliflozin 25 MG Oral Tablet [Jardiance] Jardiance 25 MG Jardiance 25 MG 12/13/2020 12:00:00 AM EST 1.0 {tablet} active Jardiance 25 MG eCW1 ([facility]) Losartan Potassium 50 MG Oral Tablet Losartan Potassium 50 M G 12/13/2020 12:00:00 AM EST 1.0 {tablet} active Lo sartan Potassium 50 MG eCW1 ([facility]) Rosuvastatin calcium 40 MG Oral Tablet Rosuvastatin Ca lcium 40 MG Rosuvastatin Calcium 40 MG 12/13/2020 12:00:00 AM EST 1.0 {tablet} active Rosuvastatin Calcium 40 MG eCW1 ([facility]) Rosuvastatin calcium 40 MG Oral Tablet Rosuvastatin Ca lcium 40 MG Rosuvastatin Calcium 40 MG 12/13/2020 12:00:00 AM EST 1.0 {tablet} active Rosuvastatin Calcium 40 MG eCW1 ([facility]) empagliflozin 25 MG Oral Tablet [Jardiance] Jardiance 25 MG Jardiance 25 MG 12/13/2020 12:00:00 AM EST 1.0 {tablet} active Jardiance 25 MG eCW1 ([facility]) Losartan Potassium 50 MG Oral Tablet Losartan Potassium 50 M G 12/13/2020 12:00:00 AM EST 1.0 {tablet} active Lo sartan Potassium 50 MG eCW1 ([facility]) empagliflozin 25 MG Oral Tablet [Jardiance] Jardiance 25 MG Jardiance 25 MG 12/13/2020 12:00:00 AM EST 1.0 {tablet} active Jardiance 25 MG eCW1 ([facility]) empagliflozin 25 MG Oral Tablet [Jardiance] Jardiance 25 MG Jardiance 25 MG 12/13/2020 12:00:00 AM EST 1.0 {tablet} active Jardiance 25 MG eCW1 ([facility]) empagliflozin 25 MG Oral Tablet [Jardiance] Jardiance 25 MG Jardiance 25 MG 12/13/2020 12:00:00 AM EST 1.0 {tablet} active Jardiance 25 MG eCW1 ([facility]) Rosuvastatin calcium 40 MG Oral Tablet Rosuvastatin Ca lcium 40 MG Rosuvastatin Calcium 40 MG 12/13/2020 12:00:00 AM EST 1.0 {tablet} active Rosuvastatin Calcium 40 MG eCW1 ([facility]) empagliflozin 25 MG Oral Tablet [Jardiance] Jardiance 25 MG Jardiance 25 MG 12/13/2020 12:00:00 AM EST 1.0 {tablet} active Jardiance 25 MG eCW1 ([facility]) Rosuvastatin calcium 40 MG Oral Tablet Rosuvastatin Ca lcium 40 MG Rosuvastatin Calcium 40 MG 12/13/2020 12:00:00 AM EST 1.0 {tablet} active Rosuvastatin Calcium 40 MG eCW1 ([facility]) Losartan Potassium 50 MG Oral Tablet Losartan Potassium 50 M G 12/13/2020 12:00:00 AM EST 1.0 {tablet} active Lo sartan Potassium 50 MG eCW1 ([facility]) Rosuvastatin calcium 40 MG Oral Tablet Rosuvastatin Ca lcium 40 MG Rosuvastatin Calcium 40 MG 12/13/2020 12:00:00 AM EST 1.0 {tablet} active Rosuvastatin Calcium 40 MG eCW1 ([facility]) Losartan Potassium 50 MG Oral Tablet Losartan Potassium 50 M G 12/13/2020 12:00:00 AM EST 1.0 {tablet} active Lo sartan Potassium 50 MG eCW1 ([facility]) Rosuvastatin calcium 40 MG Oral Tablet Rosuvastatin Ca lcium 40 MG Rosuvastatin Calcium 40 MG 12/13/2020 12:00:00 AM EST 1.0 {tablet} active Rosuvastatin Calcium 40 MG eCW1 ([facility]) Losartan Potassium 50 MG Oral Tablet Losartan Potassium 50 M G 12/13/2020 12:00:00 AM EST 1.0 {tablet} active Lo sartan Potassium 50 MG eCW1 ([facility]) Losartan Potassium 50 MG Oral Tablet Losartan Potassium 50 M G 12/13/2020 12:00:00 AM EST 1.0 {tablet} active Lo sartan Potassium 50 MG eCW1 ([facility]) empagliflozin 25 MG Oral Tablet [Jardiance] Jardiance 25 MG Jardiance 25 MG 12/13/2020 12:00:00 AM EST 1.0 {tablet} active Jardiance 25 MG eCW1 ([facility]) Losartan Potassium 50 MG Oral Tablet Losartan Potassium 50 M G 12/13/2020 12:00:00 AM EST 1.0 {tablet} active Lo sartan Potassium 50 MG eCW1 ([facility]) Rosuvastatin calcium 40 MG Oral Tablet Rosuvastatin Ca lcium 40 MG Rosuvastatin Calcium 40 MG 12/13/2020 12:00:00 AM EST 1.0 {tablet} active Rosuvastatin Calcium 40 MG [facility] [facility] Losartan Potassium 50 MG Oral Tablet Losartan Potassium 50 M G 12/13/2020 12:00:00 AM EST 1.0 {tablet} active Lo sartan Potassium 50 MG eCW1 ([facility]) Losartan Potassium 50 MG Oral Tablet Losartan Potassium 50 M G 12/13/2020 12:00:00 AM EST 1.0 {tablet} active Lo sartan Potassium 50 MG eCW1 ([facility]) Losartan Potassium 50 MG Oral Tablet Losartan Potassium 50 M G 12/13/2020 12:00:00 AM EST 1.0 {tablet} active Lo sartan Potassium 50 MG eCW1 ([facility]) empagliflozin 25 MG Oral Tablet [Jardiance] Jardiance 25 MG Jardiance 25 MG 12/13/2020 12:00:00 AM EST 1.0 {tablet} active Jardiance 25 MG eCW1 ([facility]) Rosuvastatin calcium 40 MG Oral Tablet Rosuvastatin Ca lcium 40 MG Rosuvastatin Calcium 40 MG 12/13/2020 12:00:00 AM EST 1.0 {tablet} active Rosuvastatin Calcium 40 MG eCW1 ([facility]) empagliflozin 25 MG Oral Tablet [Jardiance] Jardiance 25 MG Jardiance 25 MG 12/13/2020 12:00:00 AM EST 1.0 {tablet} active Jardiance 25 MG eCW1 ([facility]) Losartan Potassium 50 MG Oral Tablet Losartan Potassium 50 M G 12/13/2020 12:00:00 AM EST 1.0 {tablet} active Lo sartan Potassium 50 MG eCW1 ([facility]) Rosuvastatin calcium 40 MG Oral Tablet Rosuvastatin Ca lcium 40 MG Rosuvastatin Calcium 40 MG 12/13/2020 12:00:00 AM EST 1.0 {tablet} active Rosuvastatin Calcium 40 MG eCW1 ([facility]) empagliflozin 25 MG Oral Tablet [Jardiance] Jardiance 25 MG Jardiance 25 MG 12/13/2020 12:00:00 AM EST 1.0 {tablet} active Jardiance 25 MG eCW1 ([facility]) empagliflozin 25 MG Oral Tablet [Jardiance] Jardiance 25 MG Jardiance 25 MG 12/13/2020 12:00:00 AM EST 1.0 {tablet} active Jardiance 25 MG eCW1 ([facility]) Rosuvastatin calcium 40 MG Oral Tablet Rosuvastatin Ca lcium 40 MG Rosuvastatin Calcium 40 MG 12/13/2020 12:00:00 AM EST 1.0 {tablet} active Rosuvastatin Calcium 40 MG eCW1 ([facility]) empagliflozin 25 MG Oral Tablet [Jardiance] Jardiance 25 MG Jardiance 25 MG 12/13/2020 12:00:00 AM EST 1.0 {tablet} active Jardiance 25 MG eCW1 ([facility]) Rosuvastatin calcium 40 MG Oral Tablet Rosuvastatin Ca lcium 40 MG Rosuvastatin Calcium 40 MG 12/13/2020 12:00:00 AM EST 1.0 {tablet} active Rosuvastatin Calcium 40 MG eCW1 ([facility]) Covid-19 vaccine, Unspecified 12/08/2020 12:00:00 AM EST completed MEDENT ([facility]) Medication administered onsite Covid-19 vaccine, Unspecified 11/17/2020 12:00:00 AM EST completed [facility] Medication administered onsite Insurance Providers Payer name Policy type / Coverage type Policy ID Covered libertarian ID Covered libertarian's relationship to haskins Policy [place] Plan Information OTHER B [id number] Self [id number] [facility] [id number] SP [id number] [facility] [id number] SP [id number] FOR LIFE O [id number] S [id number] MEDICARE C [id number] S [id number] MEDICARE [id number] SP [id number] ANSI-Not a Secondary Insurance [id number] ANSI-Not a Secondary Insurance [id number] ANSI-Not a Secondary Insurance [id number] ANSI-Not a Secondary Insurance [id number] ANSI-Not a Secondary Insurance [id number] ANSI-Not a Secondary Insurance [id number] ANSI-Not a Secondary Insurance [id number] ANSI-Not a Secondary Insurance [id number] [facility] Standard Commercial [id number] [facility] [id number] Self Pay P none S none ANSI-Not a Secondary Insurance [id number] ANSI-Not a Secondary Insurance [id number] ANSI-Not a Secondary Insurance [id number] ANSI-Not a Secondary Insurance [id number] ANSI-Not a Secondary Insurance [id number] ANSI-Commercial [id number] ANSI-Commercial [id number] ANSI-Commercial [id number] ANSI-Commercial [id number] ANSI-Not a Secondary Insurance [id number] ANSI-Not a Secondary Insurance [id number] ANSI-Not a Secondary Insurance [id number] ANSI-Not a Secondary Insurance [id number] Self Pay P UNAVAILABLE S UNAVAILA BLE [facility] [id number] SP [id number] [employer] [facility] Part B [id number] Self [id number] [employer] Federal Service Commercial [id number] Self [id number] [facility] [id number] Self [id number] [employer] (TFL) [facility] Part B [id number] Self [id number] [employer] Commercial [id number] Self [id number] [facility]/ AD O [id number] S [id number] [facility] [id number] SP [id number] [employer] Commercial [id number] Self Medicaid [facility] [id number] Self [employer] (TFL) Materia [id number] Self 'S ADMINISTRATION [id number] SP [id number] [facility] P [id number] S [id number] [facility] P [id number] S [id number] [facility] [id number] SP [id number] [facility] O [id number] S [id number] [facility] [id number] SP [id number] [facility] [id number] SP [id number] Problems, Conditions, and Diagnoses Code Display Name Description Problem Type Effective Dates Data Source(s) 24827001 Essential hypertension Essential hypertension Problem 04/05/2021 12:00:00 AM EDT MEDENT ([facility], ) K21.9 [id number] Gastroesophageal reflux disease without e sophagitis Problem 03/12/2021 12:00:00 AM EDT eCW1 ([facility]) K76.0 [id number] Fatty liver Problem 09/11/2020 12:00:[address] eCW1 ([facility]) Surgeries/Procedures Procedure Description Date Indications Data Source(s) OFFICE OUTPATIENT NEW 45 MINUTES 04/05/2021 12:00:00 A M EDT MEDENT ([facility], ) OFFICE OUTPATIENT NEW 30 MINUTES 01/29/2021 12:00:00 A M EDT MEDENT ([facility], ) Immunization: Flublok Quadrivalent (18 years & older) 0.5mL IM (Influenza) 09/11/2020 12:00:00 AM EST eCW1 ([facility]) Results No Information Social History Code Duration Value Status Description Data Source(s ) Smoking 03/12/2021 12:00:00 AM EDT Former Smoker completed Former Smoker eCW1 ([facility]) Smoking 03/12/2021 12:00:00 AM EDT Former Smoker completed Former Smoker eCW1 ([facility]) Smoking 03/12/2021 12:00:00 AM EDT Former Smoker completed Former Smoker eCW1 ([facility]) Smoking 03/12/2021 12:00:00 AM EDT Former Smoker completed Former Smoker eCW1 ([facility]) Smoking 03/12/2021 12:00:00 AM EDT Former Smoker completed Former Smoker eCW1 ([facility]) Smoking 03/12/2021 12:00:00 AM EDT Former Smoker completed Former Smoker eCW1 ([facility]) Smoking 03/12/2021 12:00:00 AM EDT Former Smoker completed Former Smoker eCW1 ([facility]) Smoking 03/12/2021 12:00:00 AM EDT Former Smoker completed Former Smoker eCW1 ([facility]) Smoking 03/12/2021 12:00:00 AM EDT Former Smoker completed Former Smoker eCW1 ([facility]) Smoking 03/12/2021 12:00:00 AM EDT Former Smoker completed Former Smoker eCW1 ([facility]) Smoking 03/12/2021 12:00:00 AM EDT Former Smoker completed Former Smoker eCW1 ([facility]) Smoking 01/29/2021 12:00:00 AM EDT Patient is a former smoker completed Patient is a former smoker [facility] ([facility]) Smoking 12/13/2020 12:00:00 AM EST Former Smoker completed Former Smoker eCW1 ([facility]) Smoking 12/13/2020 12:00:00 AM EST Former Smoker completed Former Smoker eCW1 ([facility]) Smoking 09/11/2020 12:00:00 AM EST Former Smoker completed Former Smoker eCW1 ([facility]) Smoking 09/11/2020 12:00:00 AM EST Former Smoker completed Former Smoker eCW1 ([facility]) Smoking 09/11/2020 12:00:00 AM EST Former Smoker completed Former Smoker eCW1 ([facility]) Smoking 09/11/2020 12:00:00 AM EST Former Smoker completed Former Smoker eCW1 ([facility]) Vital Signs ID Date Data Source UNK Name Value Range Interpretation Code Description Data Source(s) Body height 68 [in_i] 68 [in_i] [facility] ([facility]) 5'8" Body weight 253.00 [lb_av] 253.00 [lb_av] [facility] ([facility]) Body mass index (BMI) [Ratio] 38.5 kg/m2 38.5 k g/m2 [facility] ([facility]) [place] body weight 154 [lb_av] 154 [lb_av] [facility] ([facility]) Body weight 114.761 kg 114.761 kg [facility] ([facility]) Body surface area Derived from formula 2.26 m2 2.26 m2 [facility] ([facility]) Systolic blood pressure 160 mm[Hg] 160 mm[Hg] M EDENT ([facility], ) Pt reports white coat syndrome Diastolic blood pressure 92 mm[Hg] 92 mm[Hg] MEDENT ([facility], ) Pt reports white coat syndrome Body weight 265 [lb_av] 265 [lb_av] eCW1 ([facility]) Body height 68 [in_i] 68 [in_i] eCW1 ([facility]) Body mass index (BMI) [Ratio] 40.29 kg/m2 40.29 kg/m2 eCW1 ([facility]) Heart rate 76 /min 76 /min eCW1 ([facility]) Respiratory rate 17 /min 17 /min W1 ([facility]) Body temperature 97.8 [degF] 97.8 [degF] eCW1 ( [facility]) Systolic blood pressure 169 mm[Hg] 169 mm[Hg] e CW1 ([facility]) Diastolic blood pressure 95 mm[Hg] 95 mm[Hg] eCW1 ([facility]) Systolic blood pressure 140 mm[Hg] 140 mm[Hg] M EDENT ([facility], ) Diastolic blood pressure 82 mm[Hg] 82 mm[Hg] MEDENT ([facility], ) Body height 68 [in_i] 68 [in_i] [facility] ([facility], ) 5'8" Body weight 257.00 [lb_av] 257.00 [lb_av] MEDEN T ([facility], ) Body weight 116.575 kg 116.575 kg [facility] ([facility]) Body surface area Derived from formula 2.27 m2 2.27 m2 [facility] ([facility], ) Heart rate 75 /min 75 /min [facility] ([facility]) Oxygen saturation in Arterial blood by Pulse oximetry 96 % 96 % [facility] ([facility]) Body temperature 96.8 [degF] 96.8 [degF] [facility] ([facility], ) Body mass index (BMI) [Ratio] 39.1 kg/m2 39.1 k g/m2 MEDENT ([facility], ) [place] body weight 154 [lb_av] 154 [lb_av] MEDEN T ([facility], ) Body weight 261 [lb_av] 261 [lb_av] eCW1 ([facility]) Body height 68 [in_i] 68 [in_i] eCW1 ([facility]) Body mass index (BMI) [Ratio] 39.68 kg/m2 39.68 kg/m2 eCW1 ([facility]) Heart rate 97 /min 97 /min eCW1 ([facility]) Respiratory rate 16 /min 16 /min eCW1 ([facility]) Body temperature 98.4 [degF] 98.4 [degF] eCW1 ( [facility]) Systolic blood pressure 156 mm[Hg] 156 mm[Hg] e CW1 ([facility]) Diastolic blood pressure 103 mm[Hg] 103 mm[Hg] eCW1 ([facility]) Body weight 253.8 [lb_av] 253.8 [lb_av] eCW1 ([facility]) Body height 68 [in_i] 68 [in_i] eCW1 ([facility]) Body mass index (BMI) [Ratio] 38.59 kg/m2 38.59 kg/m2 eCW1 ([facility]) Heart rate 67 /min 67 /min eCW1 ([facility]) Respiratory rate 18 /min 18 /min eCW1 ([facility]) Body temperature 98.1 [degF] 98.1 [degF] eCW1 ( [facility]) Systolic blood pressure 168 mm[Hg] 168 mm[Hg] e CW1 ([facility]) Diastolic blood pressure 92 mm[Hg] 92 mm[Hg] eCW1 ([facility]) Patient Treatment Plan of Care Planned Activity Planned Date Details Description Data Source (s) Rabeprazole sodium 20 MG Delayed Release Oral Tablet 021 12:00:00 AM EDT eCW1 ([facility]) Rabeprazole sodium 20 MG Delayed Release Oral Tablet 12:00:00 AM EDT eCW1 ([facility]) Rabeprazole sodium 20 MG Delayed Release Oral Tablet 12:00:00 AM EDT eCW1 ([facility]) Rabeprazole sodium 20 MG Delayed Release Oral Tablet 12:00:00 AM EDT eCW1 ([facility]) Rabeprazole sodium 20 MG Delayed Release Oral Tablet 12:00:00 AM EDT eCW1 ([facility]) Rabeprazole sodium 20 MG Delayed Release Oral Tablet 12:00:00 AM EDT eCW1 ([facility]) Rabeprazole sodium 20 MG Delayed Release Oral Tablet 12:00:00 AM EDT eCW1 ([facility]) pantoprazole 20 MG Delayed Release Oral Tablet [Proton ix] 03/13/2021 12:00:00 AM EDT eCW1 ([facility]) pantoprazole 20 MG Delayed Release Oral Tablet [Proton ix] 03/13/2021 12:00:00 AM EDT eCW1 ([facility]) pantoprazole 20 MG Delayed Release Oral Tablet [Proton ix] 03/13/2021 12:00:00 AM EDT eCW1 ([facility]) pantoprazole 20 MG Delayed Release Oral Tablet [Proton ix] 03/13/2021 12:00:00 AM EDT eCW1 ([facility]) pantoprazole 20 MG Delayed Release Oral Tablet [Proton ix] 03/13/2021 12:00:00 AM EDT eCW1 ([facility]) pantoprazole 20 MG Delayed Release Oral Tablet [Proton ix] 03/13/2021 12:00:00 AM EDT eCW1 ([facility]) pantoprazole 20 MG Delayed Release Oral Tablet [Proton ix] 03/13/2021 12:00:00 AM EDT eCW1 ([facility]) pantoprazole 20 MG Delayed Release Oral Tablet [Proton ix] 03/13/2021 12:00:00 AM EDT eCW1 ([facility]) pantoprazole 20 MG Delayed Release Oral Tablet [Proton ix] 03/13/2021 12:00:00 AM EDT eCW1 ([facility]) pantoprazole 20 MG Delayed Release Oral Tablet [Proton ix] 03/13/2021 12:00:00 AM EDT eCW1 ([facility]) pantoprazole 20 MG Delayed Release Oral Tablet [Proton ix] 03/13/2021 12:00:00 AM EDT eCW1 ([facility]) empagliflozin 25 MG Oral Tablet [Jardiance] 12/13/2020 12:00:00 AM EST eCW1 ([facility]) Losartan Potassium 50 MG Oral Tablet 12/13/2020 12:00:00 AM EST eCW1 ([facility]) empagliflozin 25 MG Oral Tablet [Jardiance] 12/13/2020 12:00:00 AM EST eCW1 ([facility]) Losartan Potassium 50 MG Oral Tablet 12/13/2020 12:00:00 AM EST eCW1 ([facility]) empagliflozin 25 MG Oral Tablet [Jardiance] 12/13/2020 12:00:00 AM EST eCW1 ([facility]) Losartan Potassium 50 MG Oral Tablet 12/13/2020 12:00:00 AM EST eCW1 ([facility]) empagliflozin 25 MG Oral Tablet [Jardiance] 12/13/2020 12:00:00 AM EST eCW1 ([facility]) Losartan Potassium 50 MG Oral Tablet 12/13/2020 12:00:00 AM EST eCW1 ([facility]) Losartan Potassium 50 MG Oral Tablet 12/13/2020 12:00:00 AM EST eCW1 ([facility]) Losartan Potassium 50 MG Oral Tablet 12/13/2020 12:00:00 AM EST eCW1 ([facility]) Losartan Potassium 50 MG Oral Tablet 12/13/2020 12:00:00 AM EST eCW1 ([facility]) Losartan Potassium 50 MG Oral Tablet 12/13/2020 12:00:00 AM EST eCW1 ([facility]) Losartan Potassium 50 MG Oral Tablet 12/13/2020 12:00:00 AM EST eCW1 ([facility]) Losartan Potassium 50 MG Oral Tablet 12/13/2020 12:00:00 AM EST eCW1 ([facility]) Losartan Potassium 50 MG Oral Tablet 12/13/2020 12:00:00 AM EST eCW1 ([facility]) empagliflozin 25 MG Oral Tablet [Jardiance] 12/13/2020 12:00:00 AM EST eCW1 ([facility]) Rosuvastatin calcium 40 MG Oral Tablet 12/13/2020 12:00:00 AM EST eCW1 ([facility]) Losartan Potassium 50 MG Oral Tablet 12/13/2020 12:00:00 AM EST eCW1 ([facility]) empagliflozin 25 MG Oral Tablet [Jardiance] 12/13/2020 12:00:00 AM EST eCW1 ([facility]) Rosuvastatin calcium 40 MG Oral Tablet 12/13/2020 12:00:00 AM EST eCW1 ([facility]) Losartan Potassium 50 MG Oral Tablet 12/13/2020 12:00:00 AM EST eCW1 ([facility])
[2021-07-31] MEDS ORDERED: LORA-674 (12:51)
[2021-07-31] MEDS ORDERED: CHLO125TA (12:51)
[2021-07-31] MEDS ORDERED: JARD1TAB3 (12:51)
[2021-07-31] MEDS ORDERED: FINA5TAB2 (12:51)
[2021-07-31] MEDS ORDERED: META0.52 PO (12:51)
[2021-07-31] MEDS ORDERED: ROSU40TA4 (12:51)
[2021-07-31 16:42] LABS: BASO # 0.1 10^3/uL (0.0-0.2); BASO % 0.7 % (0.0-1.0); EOS # 0.2 10^3/uL (0.0-0.5); EOS % 2.4 % (0.0-3.0); HEMOGLOBIN 16.9 g/dl (13.5-17.5); LYMPH # 2.4 10^3/uL (1.5-5.0); LYMPH % 31.1 % (24.0-44.0); MEAN CORPUSCULAR HEMOGLOBIN 28.9 pg (27.0-33.0); MEAN CORPUSCULAR HGB CONC 34.5 g/dl (32.0-36.5); MEAN CORPUSCULAR VOLUME 83.9 fl (80.0-96.0); MONO # 0.6 10^3/uL (0.0-0.8); MONO % 8.1 % (2.0-8.0); NEUTROPHILS # 4.4 10^3/uL (1.5-8.5); NEUTROPHILS % 57.4 % (36.0-66.0); PLATELET COUNT, AUTOMATED 221 10^3/uL (150-450); RED BLOOD COUNT 5.84 10^6/uL (4.30-6.10); WHITE BLOOD COUNT 7.6 10^3/uL (4.0-10.0)
--- OUTSIDE RECORDS SUMMARY | 2021-07-31 16:59 | CCD ---
Author Author [facility] Organization [facility] Address Unknown Phone Unavailable Care Team Providers Care Scientist Engineer Name Role Phone Charlebois, A Nitza RPA [...] RPA C Unavailable Unavailable ELINA, DIMAS JOSTIN BUTADIENE CONVERTOR OPERATOR-C Unavailable Unavailable ELINA, DIMAS JOSTIN BUTADIENE CONVERTOR OPERATOR-C Unavailable Unavailable ELINA, DIMAS JOSTIN BUTADIENE CONVERTOR OPERATOR-C Unavailable Unavailable ELINA, DIMAS JOSTIN BUTADIENE CONVERTOR OPERATOR-C Unavailable Unavailable ELINA, DIMAS JOSTIN BUTADIENE CONVERTOR OPERATOR-C Unavailable Unavailable ELINA, DIMAS JOSTIN BUTADIENE CONVERTOR OPERATOR-C Unavailable Unavailable ELINA, DIMAS JOSTIN BUTADIENE CONVERTOR OPERATOR-C Unavailable Unavailable ELINA, DIMAS JOSTIN BUTADIENE CONVERTOR OPERATOR-C Unavailable Unavailable ELINA, DIMAS JOSTIN BUTADIENE CONVERTOR OPERATOR-C Unavailable Unavailable ELINA, DIMAS JOSTIN BUTADIENE CONVERTOR OPERATOR-C Unavailable Unavailable ELINA, DIMAS JOSTIN BUTADIENE CONVERTOR OPERATOR-C Unavailable Unavailable ELINA, DIMAS JOSTIN BUTADIENE CONVERTOR OPERATOR-C Unavailable Unavailable ELINA, DIMAS JOSTIN BUTADIENE CONVERTOR OPERATOR-C Unavailable Unavailable ELINA, DIMAS JOSTIN BUTADIENE CONVERTOR OPERATOR-C Unavailable Unavailable ELINA, DIMAS JOSTIN BUTADIENE CONVERTOR OPERATOR-C Unavailable Unavailable ELINA, DIMAS JOSTIN BUTADIENE CONVERTOR OPERATOR-C Unavailable Unavailable ELINA, DIMAS JOSTIN BUTADIENE CONVERTOR OPERATOR-C Unavailable Unavailable Re-disclosure Warning The records that [...] is protected by Article 27-F of the [facility] Public Health law. If you continue you may have access to information: Regarding HIV / AIDS; Provided by facilities licensed or operated by the [facility] Office of Mental Health; or Provided by the [facility] Office for People With Developmental Disabilities. If such information is present, then the following [facility] mandated warning applies: This information has been [...] law may result in a fine or usp sentence or both. A general authorization for the release of medical or other information is NOT sufficient authorization for further disc losure. Family History Family Member Name Family Member Gender Family Member Status Date o f Status Description Data Source(s) Unknown Male Problem MEDENT ([facility]) Unknown Male Problem MEDENT ([facility]) Unknown Male Problem MEDENT ([facility]) Unknown Male Problem MEDENT ([facility]) Encounters Encounter Providers Location Date Indications Data Source(s ) Unknown [address] [facility] [place] [address] 07/23/2021 12:00:00 AM EDT eCW1 ([facility]) Unknown [address] [facility] [place] [address] 07/10/2021 12:00:00 AM EDT eCW1 ([facility]) Unknown [address] [facility] [place] [address] 06/25/2021 12:00:00 AM EDT eCW1 ([facility]) Unknown [address] [facility] [place] [address] 06/25/2021 12:00:00 AM EDT eCW1 ([facility]) Unknown [address] [facility] [address] [place] [address] 04/23/2021 12:00:00 AM EDT [facility]CW1 ([facility]) [place] [address] [facility] [place] [address] 04/15/2021 12:00:00 AM EDT eCW1 ([facility]) [place] [address] [facility] [place] [address] 04/15/2021 12:00:00 AM EDT [facility] Outpatient Attender: Nitza Harding/Monae/Keri cardoso/Santi 04/05/2021 02:30:00 PM EDT MEDENT ([facility] MARICHUY Quinn) [place] [address] [facility] [place] [address] 03/20/2021 12:00:00 AM EDT eCW1 ([facility]) Unknown [address] [facility] [place] [address] 03/13/2021 12:00:00 AM EDT eCW1 ([facility]) Unknown [address] [facility] [place] [address] 03/13/2021 12:00:00 AM EDT eCW1 ([facility]) Outpatient [address] [facility] [place] [address] 03/12/2021 12:00:00 AM EDT [facility]) Outpatient Attender: JOSTIN Harding/Monae/Osvaldo/Lida pino 01/29/2021 01:15:00 PM EDT MEDENT ([facility] MARICHUY Guzman) Outpatient [address] [facility] [place] [address] 12/13/2020 12:00:00 AM EST eCW1 ([facility]) Unknown [address] [facility] [place] [address] 12/13/2020 12:00:00 AM EST eCW1 ([facility]) Unknown [address] [facility] [place] [address] 11/14/2020 12:00:00 AM EST eCW1 ([facility]) [place] [address] [facility] [place] [address] 10/03/2020 12:00:00 AM EST eCW1 ([facility]) [place] [address] [facility] [place] [address] 09/18/2020 12:00:00 AM EST eCW1 ([facility]) Outpatient [address] [facility] [place] [address] 09/11/2020 12:00:00 AM EST eCW1 ([facility]) Immunizations Vaccine Date Status Description Data Source(s) COVID-19 dose #2 given elsewhere Unspecified 12/08/2020 03:3 6:00 PM EST completed eCW1 ([facility]) COVID-19 dose #2 given elsewhere Unspecified 12/08/2020 03:3 6:00 PM EST completed eCW1 ([facility]) Pfizer #2 dose COVID-19(given elsewhere) SARSCOV2 VAC 30MCG/0.3ML IM 12/08/2020 03:26:00 PM EST completed eCW1 ([facility]) Pfizer #2 dose COVID-19(given elsewhere) SARSCOV2 VAC 30MCG/0.3ML IM 12/08/2020 03:26:00 PM EST completed eCW1 ([facility]) Pfizer #2 dose COVID-19(given elsewhere) SARSCOV2 VAC 30MCG/0.3ML IM 12/08/2020 03:26:00 PM EST completed eCW1 ([facility]) Pfizer #2 dose COVID-19(given elsewhere) SARSCOV2 VAC 30MCG/0.3ML IM 12/08/2020 03:26:00 PM EST completed eCW1 ([facility]) Pfizer #2 dose COVID-19(given elsewhere) SARSCOV2 VAC 30MCG/0.3ML IM 12/08/2020 03:26:00 PM EST completed eCW1 ([facility]) Pfizer #2 dose COVID-19(given elsewhere) SARSCOV2 VAC 30MCG/0.3ML IM 12/08/2020 03:26:00 PM EST completed eCW1 ([facility]) Pfizer #2 dose COVID-19(given elsewhere) SARSCOV2 VAC 30MCG/0.3ML IM 12/08/2020 03:26:00 PM EST completed eCW1 ([facility]) Pfizer #2 dose COVID-19(given elsewhere) SARSCOV2 VAC 30MCG/0.3ML IM 12/08/2020 03:26:00 PM EST completed eCW1 ([facility]) Pfizer #2 dose COVID-19(given elsewhere) SARSCOV2 VAC 30MCG/0.3ML IM 12/08/2020 03:26:00 PM EST completed eCW1 ([facility]) Pfizer #2 dose COVID-19(given elsewhere) SARSCOV2 VAC 30MCG/0.3ML IM 12/08/2020 03:26:00 PM EST completed eCW1 ([facility]) Pfizer #2 dose COVID-19(given elsewhere) SARSCOV2 VAC 30MCG/0.3ML IM 12/08/2020 03:26:00 PM EST completed eCW1 ([facility]) COVID-19 VACCINE Pfizer 12/08/2020 12:00:00 AM EST completed [employer] Vaccine Series Complete: YESThis Data wa s Submitted to [facility] Via [employer]. COVID-19 VACCINE, MRNA, [id number], LNP-S ([facility])/PF 12/08/19 12:00:00 AM EST completed [facility] COVID-19 dose #1 given elsewhere Unspecified 11/17/2020 03:3 5:00 PM EST completed eCW1 ([facility]) COVID-19 dose #1 given elsewhere Unspecified 11/17/2020 03:3 5:00 PM EST completed eCW1 ([facility]) Pfizer #1 dose COVID-19(given elsewhere) SARSCOV2 VAC 30MCG/0.3ML IM 11/17/2020 03:24:00 PM EST completed eCW1 ([facility]) Pfizer #1 dose COVID-19(given elsewhere) SARSCOV2 VAC 30MCG/0.3ML IM 11/17/2020 03:24:00 PM EST completed eCW1 ([facility]) Pfizer #1 dose COVID-19(given elsewhere) SARSCOV2 VAC 30MCG/0.3ML IM 11/17/2020 03:24:00 PM EST completed eCW1 ([facility]) Pfizer #1 dose COVID-19(given elsewhere) SARSCOV2 VAC 30MCG/0.3ML IM 11/17/2020 03:24:00 PM EST completed eCW1 ([facility]) Pfizer #1 dose COVID-19(given elsewhere) SARSCOV2 VAC 30MCG/0.3ML IM 11/17/2020 03:24:00 PM EST completed eCW1 ([facility]) Pfizer #1 dose COVID-19(given elsewhere) SARSCOV2 VAC 30MCG/0.3ML IM 11/17/2020 03:24:00 PM EST completed eCW1 ([facility]) Pfizer #1 dose COVID-19(given elsewhere) SARSCOV2 VAC 30MCG/0.3ML IM 11/17/2020 03:24:00 PM EST completed eCW1 ([facility]) Pfizer #1 dose COVID-19(given elsewhere) SARSCOV2 VAC 30MCG/0.3ML IM 11/17/2020 03:24:00 PM EST completed eCW1 ([facility]) Pfizer #1 dose COVID-19(given elsewhere) SARSCOV2 VAC 30MCG/0.3ML IM 11/17/2020 03:24:00 PM EST completed eCW1 ([facility]) Pfizer #1 dose COVID-19(given elsewhere) SARSCOV2 VAC 30MCG/0.3ML IM 11/17/2020 03:24:00 PM EST completed eCW1 ([facility]) Pfizer #1 dose COVID-19(given elsewhere) SARSCOV2 VAC 30MCG/0.3ML IM 11/17/2020 03:24:00 PM EST completed eCW1 ([facility]) COVID-19 VACCINE Pfizer 11/17/2020 12:00:00 AM EST completed [employer] Vaccine Series Complete: NOThis Data was Submitted to [facility] Via [employer]. COVID-19 VACCINE, MRNA, [id number], LNP-S ([facility])/PF 11/17/19 21 12:00:00 AM EST completed [facility] influenza, recombinant, quadrIvalent,injectable, prese rvative free 09/11/2020 03:44:00 PM EST completed eCW1 ([facility]) influenza, recombinant, quadrIvalent,injectable, prese rvative free 09/11/2020 03:44:00 PM EST completed eCW1 ([facility]) influenza, recombinant, quadrIvalent,injectable, prese rvative free 09/11/2020 03:44:00 PM EST completed eCW1 ([facility]) influenza, recombinant, quadrIvalent,injectable, prese rvative free 09/11/2020 03:44:00 PM EST completed eCW1 ([facility]) influenza, recombinant, quadrIvalent,injectable, prese rvative free 09/11/2020 03:44:00 PM EST completed eCW1 ([facility]) influenza, recombinant, quadrIvalent,injectable, prese rvative free 09/11/2020 03:44:00 PM EST completed eCW1 ([facility]) influenza, recombinant, quadrIvalent,injectable, prese rvative free 09/11/2020 03:44:00 PM EST completed eCW1 ([facility]) influenza, recombinant, quadrIvalent,injectable, prese rvative free 09/11/2020 03:44:00 PM EST completed eCW1 ([facility]) influenza, recombinant, quadrIvalent,injectable, prese rvative free 09/11/2020 03:44:00 PM EST completed eCW1 ([facility]) influenza, recombinant, quadrIvalent,injectable, prese rvative free 09/11/2020 03:44:00 PM EST completed eCW1 ([facility]) influenza, recombinant, quadrIvalent,injectable, prese rvative free 09/11/2020 03:44:00 PM EST completed eCW1 ([facility]) influenza, recombinant, quadrIvalent,injectable, prese rvative free 09/11/2020 03:44:00 PM EST completed eCW1 ([facility]) influenza, recombinant, quadrIvalent,injectable, prese rvative free 09/11/2020 03:44:00 PM EST completed eCW1 ([facility]) influenza, recombinant, quadrIvalent,injectable, prese rvative free 09/11/2020 03:44:00 PM EST completed eCW1 ([facility]) influenza, recombinant, quadrIvalent,injectable, prese rvative free 09/11/2020 03:44:00 PM EST completed eCW1 ([facility]) influenza, recombinant, quadrIvalent,injectable, prese rvative free 09/11/2020 03:44:00 PM EST completed eCW1 ([facility]) influenza, recombinant, quadrIvalent,injectable, prese rvative free 09/11/2020 03:44:00 PM EST completed eCW1 ([facility]) Medications Medication Brand Name Start Date Product Form Dose Route Admi nistrative Instructions Pharmacy Instructions Status Indications Reaction Description Data Source(s) Rabeprazole sodium 20 MG Delayed Release Oral Tablet R ABEprazole Sodium 20 MG RABEprazole Sodium 20 MG 04/15/2021 12:00:00 AM EDT 1.0 {tablet} active RABEprazole Sodium 20 MG eCW1 ([facility]) Rabeprazole sodium 20 MG Delayed Release Oral Tablet R ABEprazole Sodium 20 MG RABEprazole Sodium 20 MG 04/15/2021 12:00:00 AM EDT 1.0 {tablet} active RABEprazole Sodium 20 MG eCW1 ([facility]) Rabeprazole sodium 20 MG Delayed Release Oral Tablet R ABEprazole Sodium 20 MG RABEprazole Sodium 20 MG 04/15/2021 12:00:00 AM EDT 1.0 {tablet} active RABEprazole Sodium 20 MG eCW1 ([facility]) Rabeprazole sodium 20 MG Delayed Release Oral Tablet R ABEprazole Sodium 20 MG RABEprazole Sodium 20 MG 04/15/2021 12:00:00 AM EDT 1.0 {tablet} active RABEprazole Sodium 20 MG eCW1 ([facility]) Rabeprazole sodium 20 MG Delayed Release Oral Tablet R ABEprazole Sodium 20 MG RABEprazole Sodium 20 MG 04/15/2021 12:00:00 AM EDT 1.0 {tablet} active RABEprazole Sodium 20 MG eCW1 ([facility]) Rabeprazole sodium 20 MG Delayed Release Oral Tablet R ABEprazole Sodium 20 MG RABEprazole Sodium 20 MG 04/15/2021 12:00:00 AM EDT 1.0 {tablet} active RABEprazole Sodium 20 MG eCW1 ([facility]) Rabeprazole sodium 20 MG Delayed Release Oral Tablet R ABEprazole Sodium 20 MG RABEprazole Sodium 20 MG 04/15/2021 12:00:00 AM EDT 1.0 {tablet} active RABEprazole Sodium 20 MG eCW1 ([facility]) Suprep Bowel Prep Kit Suprep Bowel Prep Kit 04/05/2021 12:00:00 AM EDT active MEDENT ([facility] ) Magnesium Hydroxide 80 MG/ML Oral Suspension Milk Of Magnesi a 04/05/2021 12:00:00 AM EDT ORAL active M EDENT ([facility], ) pantoprazole 20 MG Delayed Release Oral Tablet [Proton ix] Protonix 20 MG Protonix 20 MG 03/13/2021 12:00:00 AM EDT 1.0 {tablet} active Protonix 20 MG eCW1 ([facility]) pantoprazole 20 MG Delayed Release Oral Tablet [Proton ix] Protonix 20 MG Protonix 20 MG 03/13/2021 12:00:00 AM EDT 1.0 {tablet} active Protonix 20 MG eCW1 ([facility]) pantoprazole 20 MG Delayed Release Oral Tablet [Proton ix] Protonix 20 MG Protonix 20 MG 03/13/2021 12:00:00 AM EDT 1.0 {tablet} active Protonix 20 MG eCW1 ([facility]) pantoprazole 20 MG Delayed Release Oral Tablet [Proton ix] Protonix 20 MG Protonix 20 MG 03/13/2021 12:00:00 AM EDT 1.0 {tablet} active Protonix 20 MG eCW1 ([facility]) pantoprazole 20 MG Delayed Release Oral Tablet [Proton ix] Protonix 20 MG Protonix 20 MG 03/13/2021 12:00:00 AM EDT 1.0 {tablet} active Protonix 20 MG eCW1 ([facility]) pantoprazole 20 MG Delayed Release Oral Tablet [Proton ix] Protonix 20 MG Protonix 20 MG 03/13/2021 12:00:00 AM EDT 1.0 {tablet} active Protonix 20 MG eCW1 ([facility]) pantoprazole 20 MG Delayed Release Oral Tablet [Proton ix] Protonix 20 MG Protonix 20 MG 03/13/2021 12:00:00 AM EDT 1.0 {tablet} active Protonix 20 MG eCW1 ([facility]) pantoprazole 20 MG Delayed Release Oral Tablet [Proton ix] Protonix 20 MG Protonix 20 MG 03/13/2021 12:00:00 AM EDT 1.0 {tablet} active Protonix 20 MG eCW1 ([facility]) pantoprazole 20 MG Delayed Release Oral Tablet [Proton ix] Protonix 20 MG Protonix 20 MG 03/13/2021 12:00:00 AM EDT 1.0 {tablet} active Protonix 20 MG eCW1 ([facility]) pantoprazole 20 MG Delayed Release Oral Tablet [Proton ix] Protonix 20 MG Protonix 20 MG 03/13/2021 12:00:00 AM EDT 1.0 {tablet} active Protonix 20 MG eCW1 ([facility]) pantoprazole 20 MG Delayed Release Oral Tablet [Proton ix] Protonix 20 MG Protonix 20 MG 03/13/2021 12:00:00 AM EDT 1.0 {tablet} active Protonix 20 MG eCW1 ([facility]) CPAP 02/13/2021 12:00:00 AM EDT active MEDENT ([facility] ) Losartan Potassium 50 MG Oral Tablet Losartan Potassium 50 M G 12/13/2020 12:00:00 AM EST 1.0 {tablet} active Lo sartan Potassium 50 MG eCW1 ([facility]) Rosuvastatin calcium 40 MG Oral Tablet Rosuvastatin Ca lcium 40 MG Rosuvastatin Calcium 40 MG 12/13/2020 12:00:00 AM EST 1.0 {tablet} active Rosuvastatin Calcium 40 MG eCW1 ([facility]) Losartan Potassium 50 MG Oral Tablet Losartan Potassium 50 M G 12/13/2020 12:00:00 AM EST 1.0 {tablet} active Lo sartan Potassium 50 MG eCW1 ([facility]) Rosuvastatin calcium 40 MG Oral Tablet Rosuvastatin Ca lcium 40 MG Rosuvastatin Calcium 40 MG 12/13/2020 12:00:00 AM EST 1.0 {tablet} active Rosuvastatin Calcium 40 MG eCW1 ([facility]) empagliflozin 25 MG Oral Tablet [Jardiance] Jardiance 25 MG Jardiance 25 MG 12/13/2020 12:00:00 AM EST 1.0 {tablet} active Jardiance 25 MG eCW1 ([facility]) empagliflozin 25 MG Oral Tablet [Jardiance] Jardiance 25 MG Jardiance 25 MG 12/13/2020 12:00:00 AM EST 1.0 {tablet} active Jardiance 25 MG eCW1 ([facility]) Losartan Potassium 50 MG Oral Tablet Losartan Potassium 50 M G 12/13/2020 12:00:00 AM EST 1.0 {tablet} active Lo sartan Potassium 50 MG eCW1 ([facility]) Rosuvastatin calcium 40 MG Oral Tablet Rosuvastatin Ca lcium 40 MG Rosuvastatin Calcium 40 MG 12/13/2020 12:00:00 AM EST 1.0 {tablet} active Rosuvastatin Calcium 40 MG eCW1 ([facility]) Rosuvastatin calcium 40 MG Oral Tablet Rosuvastatin Ca lcium 40 MG Rosuvastatin Calcium 40 MG 12/13/2020 12:00:00 AM EST 1.0 {tablet} active Rosuvastatin Calcium 40 MG eCW1 ([facility]) empagliflozin 25 MG Oral Tablet [Jardiance] Jardiance 25 MG Jardiance 25 MG 12/13/2020 12:00:00 AM EST 1.0 {tablet} active Jardiance 25 MG eCW1 ([facility]) Losartan Potassium 50 MG Oral Tablet Losartan Potassium 50 M G 12/13/2020 12:00:00 AM EST 1.0 {tablet} active Lo sartan Potassium 50 MG eCW1 ([facility]) empagliflozin 25 MG Oral Tablet [Jardiance] Jardiance 25 MG Jardiance 25 MG 12/13/2020 12:00:00 AM EST 1.0 {tablet} active Jardiance 25 MG eCW1 ([facility]) empagliflozin 25 MG Oral Tablet [Jardiance] Jardiance 25 MG Jardiance 25 MG 12/13/2020 12:00:00 AM EST 1.0 {tablet} active Jardiance 25 MG eCW1 ([facility]) empagliflozin 25 MG Oral Tablet [Jardiance] Jardiance 25 MG Jardiance 25 MG 12/13/2020 12:00:00 AM EST 1.0 {tablet} active Jardiance 25 MG eCW1 ([facility]) Rosuvastatin calcium 40 MG Oral Tablet Rosuvastatin Ca lcium 40 MG Rosuvastatin Calcium 40 MG 12/13/2020 12:00:00 AM EST 1.0 {tablet} active Rosuvastatin Calcium 40 MG eCW1 ([facility]) empagliflozin 25 MG Oral Tablet [Jardiance] Jardiance 25 MG Jardiance 25 MG 12/13/2020 12:00:00 AM EST 1.0 {tablet} active Jardiance 25 MG eCW1 ([facility]) Rosuvastatin calcium 40 MG Oral Tablet Rosuvastatin Ca lcium 40 MG Rosuvastatin Calcium 40 MG 12/13/2020 12:00:00 AM EST 1.0 {tablet} active Rosuvastatin Calcium 40 MG eCW1 ([facility]) Losartan Potassium 50 MG Oral Tablet Losartan Potassium 50 M G 12/13/2020 12:00:00 AM EST 1.0 {tablet} active Lo sartan Potassium 50 MG eCW1 ([facility]) Rosuvastatin calcium 40 MG Oral Tablet Rosuvastatin Ca lcium 40 MG Rosuvastatin Calcium 40 MG 12/13/2020 12:00:00 AM EST 1.0 {tablet} active Rosuvastatin Calcium 40 MG eCW1 ([facility]) Losartan Potassium 50 MG Oral Tablet Losartan Potassium 50 M G 12/13/2020 12:00:00 AM EST 1.0 {tablet} active Lo sartan Potassium 50 MG eCW1 ([facility]) Rosuvastatin calcium 40 MG Oral Tablet Rosuvastatin Ca lcium 40 MG Rosuvastatin Calcium 40 MG 12/13/2020 12:00:00 AM EST 1.0 {tablet} active Rosuvastatin Calcium 40 MG eCW1 ([facility]) Losartan Potassium 50 MG Oral Tablet Losartan Potassium 50 M G 12/13/2020 12:00:00 AM EST 1.0 {tablet} active Lo sartan Potassium 50 MG eCW1 ([facility]) Losartan Potassium 50 MG Oral Tablet Losartan Potassium 50 M G 12/13/2020 12:00:00 AM EST 1.0 {tablet} active Lo sartan Potassium 50 MG eCW1 ([facility]) empagliflozin 25 MG Oral Tablet [Jardiance] Jardiance 25 MG Jardiance 25 MG 12/13/2020 12:00:00 AM EST 1.0 {tablet} active Jardiance 25 MG eCW1 ([facility]) Losartan Potassium 50 MG Oral Tablet Losartan Potassium 50 M G 12/13/2020 12:00:00 AM EST 1.0 {tablet} active Lo sartan Potassium 50 MG eCW1 ([facility]) Rosuvastatin calcium 40 MG Oral Tablet Rosuvastatin Ca lcium 40 MG Rosuvastatin Calcium 40 MG 12/13/2020 12:00:00 AM EST 1.0 {tablet} active Rosuvastatin Calcium 40 MG eCW1 ([facility]) Losartan Potassium 50 MG Oral Tablet Losartan Potassium 50 M G 12/13/2020 12:00:00 AM EST 1.0 {tablet} active Lo sartan Potassium 50 MG eCW1 ([facility]) Losartan Potassium 50 MG Oral Tablet Losartan Potassium 50 M G 12/13/2020 12:00:00 AM EST 1.0 {tablet} active Lo sartan Potassium 50 MG eCW1 ([facility]) Losartan Potassium 50 MG Oral Tablet Losartan Potassium 50 M G 12/13/2020 12:00:00 AM EST 1.0 {tablet} active Lo sartan Potassium 50 MG eCW1 ([facility]) empagliflozin 25 MG Oral Tablet [Jardiance] Jardiance 25 MG Jardiance 25 MG 12/13/2020 12:00:00 AM EST 1.0 {tablet} active Jardiance 25 MG eCW1 ([facility]) Rosuvastatin calcium 40 MG Oral Tablet Rosuvastatin Ca lcium 40 MG Rosuvastatin Calcium 40 MG 12/13/2020 12:00:00 AM EST 1.0 {tablet} active Rosuvastatin Calcium 40 MG eCW1 ([facility]) empagliflozin 25 MG Oral Tablet [Jardiance] Jardiance 25 MG Jardiance 25 MG 12/13/2020 12:00:00 AM EST 1.0 {tablet} active Jardiance 25 MG eCW1 ([facility]) Losartan Potassium 50 MG Oral Tablet Losartan Potassium 50 M G 12/13/2020 12:00:00 AM EST 1.0 {tablet} active Lo sartan Potassium 50 MG eCW1 ([facility]) Rosuvastatin calcium 40 MG Oral Tablet Rosuvastatin Ca lcium 40 MG Rosuvastatin Calcium 40 MG 12/13/2020 12:00:00 AM EST 1.0 {tablet} active Rosuvastatin Calcium 40 MG eCW1 ([facility]) empagliflozin 25 MG Oral Tablet [Jardiance] Jardiance 25 MG Jardiance 25 MG 12/13/2020 12:00:00 AM EST 1.0 {tablet} active Jardiance 25 MG eCW1 ([facility]) empagliflozin 25 MG Oral Tablet [Jardiance] Jardiance 25 MG Jardiance 25 MG 12/13/2020 12:00:00 AM EST 1.0 {tablet} active [facility] 25 MG eCW1 ([facility]) Rosuvastatin calcium 40 MG Oral Tablet Rosuvastatin Ca lcium 40 MG Rosuvastatin Calcium 40 MG 12/13/2020 12:00:00 AM EST 1.0 {tablet} active Rosuvastatin Calcium 40 MG eCW1 ([facility]) empagliflozin 25 MG Oral Tablet [Jardiance] Jardiance 25 MG Jardiance 25 MG 12/13/2020 12:00:00 AM EST 1.0 {tablet} active Jardiance 25 MG eCW1 ([facility]) Rosuvastatin calcium 40 MG Oral Tablet Rosuvastatin Ca lcium 40 MG Rosuvastatin Calcium 40 MG 12/13/2020 12:00:00 AM EST 1.0 {tablet} active Rosuvastatin Calcium 40 MG eCW1 ([facility]) Covid-19 vaccine, Unspecified 12/08/2020 12:00:00 AM EST completed MEDENT ([facility]) Medication administered onsite Covid-19 vaccine, Unspecified 11/17/2020 12:00:00 AM EST completed MEDENT ([facility]) Medication administered onsite Insurance Providers Payer name Policy type / Coverage type Policy ID Covered green party ID Covered green party's relationship to haskins Policy [place] Plan Information OTHER B [id number] Self [id number] [facility] [id number] SP [id number] [facility] [id number] SP [id number] FOR LIFE O [id number] S [id number] MEDICARE C [id number] S [id number] MEDICARE [id number] SP [id number] ANSI-Not a Secondary Insurance [id number] ANSI-Not a Secondary Insurance [id number] ANSI-Not a Secondary Insurance [id number] ANSI-Not a Secondary Insurance [id number] ANSI-Not a Secondary Insurance [id number] ANSI-Not a Secondary Insurance [id number] ANSI-Not a Secondary Insurance [id number] ANSI-Not a Secondary Insurance [id number] [facility] Standard Commercial [id number] Self [id number] Self Pay P none S none ANSI-Not a Secondary Insurance [id number] ANSI-Not a Secondary Insurance [id number] ANSI-Not a Secondary Insurance [id number] ANSI-Not a Secondary Insurance [id number] ANSI-Not a Secondary Insurance [id number] ANSI-Commercial [id number] ANSI-Commercial [id number] ANSI-Commercial [id number] ANSI-Commercial [id number] ANSI-Not a Secondary Insurance [id number] ANSI-Not a Secondary Insurance [id number] ANSI-Not a Secondary Insurance [id number] ANSI-Not a Secondary Insurance [id number] Self Pay P UNAVAILABLE S UNAVAILA BLE [facility] [id number] SP [id number] [place] [employer] (TFL[place] Medigap Part B [id number] Self [id number] [employer] Commercial [id number] Self [id number] [place] Med[place] [id number] Self [id number] [place] [employer] (TFL[place] Medigap Part B [id number] Self [id number] [employer] Commercial [id number] Self [id number] [employer]/ AD O [id number] S [id number] [facility] [id number] SP [id number] [employer] Commercial [id number] Self [place] [id number] Self [place] [employer] (TFL) Commercial [id number] Self 'S ADMINISTRATION [id number] SP [id number] [facility] P [id number] S [id number] [facility]/136E P [id number] S [id number] [facility]/136E [id number] SP [id number] [facility] O [id number] S [id number] [facility] [id number] SP [id number] [facility] [id number] SP [id number] Problems, Conditions, and Diagnoses Code Display Name Description Problem Type Effective Dates Data Source(s) 54769496 Essential hypertension Essential hypertension Problem 04/05/2021 12:00:00 AM EDT MEDENT ([facility], ) K21.9 147033883 Gastroesophageal reflux disease without e sophagitis Problem 03/12/2021 12:00:00 AM EDT eCW1 ([facility]) K76.0 [id number] Fatty liver Problem 09/11/2020 12:00:[address] eCW1 ([facility]) Surgeries/Procedures Procedure Description Date Indications Data Source(s) OFFICE OUTPATIENT NEW 45 MINUTES 04/05/2021 12:00:00 A M [facility] OFFICE OUTPATIENT NEW 30 MINUTES 01/29/2021 12:00:00 A M EDT [facility] Immunization: Flublok Quadrivalent (18 years & older) 0.5mL IM (Influenza) 09/11/2020 12:00:00 AM EST eCW1 ([facility]) Results No Information Social History Code Duration Value Status Description Data Source(s ) Smoking 03/12/2021 12:00:00 AM EDT Former Smoker completed Former Smoker eCW1 ([facility]) Smoking 03/12/2021 12:00:00 AM EDT Former Smoker completed Former Smoker eCW1 ([facility]) Smoking 03/12/2021 12:00:00 AM EDT Former Smoker completed Former Smoker eCW1 ([facility]) Smoking 03/12/2021 12:00:00 AM EDT Former Smoker completed Former Smoker eCW1 ([facility]) Smoking 03/12/2021 12:00:00 AM EDT Former Smoker completed Former Smoker eCW1 ([facility]) Smoking 03/12/2021 12:00:00 AM EDT Former Smoker completed Former Smoker eCW1 ([facility]) Smoking 03/12/2021 12:00:00 AM EDT Former Smoker completed Former Smoker eCW1 ([facility]) Smoking 03/12/2021 12:00:00 AM EDT Former Smoker completed Former Smoker eCW1 ([facility]) Smoking 03/12/2021 12:00:00 AM EDT Former Smoker completed Former Smoker eCW1 ([facility]) Smoking 03/12/2021 12:00:00 AM EDT Former Smoker completed Former Smoker eCW1 ([facility]) Smoking 03/12/2021 12:00:00 AM EDT Former Smoker completed Former Smoker eCW1 ([facility]) Smoking 01/29/2021 12:00:00 AM EDT Patient is a former smoker completed Patient is a former smoker [facility] ([facility]) Smoking 12/13/2020 12:00:00 AM EST Former Smoker completed Former Smoker eCW1 ([facility]) Smoking 12/13/2020 12:00:00 AM EST Former Smoker completed Former Smoker eCW1 ([facility]) Smoking 09/11/2020 12:00:00 AM EST Former Smoker completed Former Smoker eCW1 ([facility]) Smoking 09/11/2020 12:00:00 AM EST Former Smoker completed Former Smoker eCW1 ([facility]) Smoking 09/11/2020 12:00:00 AM EST Former Smoker completed Former Smoker eCW1 ([facility]) Smoking 09/11/2020 12:00:00 AM EST Former Smoker completed Former Smoker eCW1 ([facility]) Vital Signs ID Date Data Source UNK Name Value Range Interpretation Code Description Data Source(s) Systolic blood pressure 160 mm[Hg] 160 mm[Hg] M HAFSA ([facility], ) Pt reports white coat syndrome Body height 68 [in_i] 68 [in_i] [facility] 5'8" Diastolic blood pressure 92 mm[Hg] 92 mm[Hg] [facility] ([facility]) Pt reports white coat syndrome Body weight 253.00 [lb_av] 253.00 [lb_av] [facility] Body mass index (BMI) [Ratio] 38.5 kg/m2 38.5 k g/m2 [facility] ([facility]) [place] body weight 154 [lb_av] 154 [lb_av] [facility] Body weight 114.761 kg 114.761 kg [facility] Body surface area Derived from formula 2.26 m2 2.26 m2 [facility] ([facility]) Body weight 265 [lb_av] 265 [lb_av] eCW1 ([facility]) Body height 68 [in_i] 68 [in_i] eCW1 ([facility]) Body mass index (BMI) [Ratio] 40.29 kg/m2 40.29 kg/m2 eCW1 ([facility]) Heart rate 76 /min 76 /min eCW1 ([facility]) Respiratory rate 17 /min 17 /min eCW1 ([facility]) Body temperature 97.8 [degF] 97.8 [degF] eCW1 ( [facility]) Systolic blood pressure 169 mm[Hg] 169 mm[Hg] e CW1 ([facility]) Diastolic blood pressure 95 mm[Hg] 95 mm[Hg] eCW1 ([facility]) Body weight 257.00 [lb_av] 257.00 [lb_av] MEDEN T ([facility]) Body height 68 [in_i] 68 [in_i] [facility] 5'8" Heart rate 75 /min 75 /min [facility] (Health system) Oxygen saturation in Arterial blood by Pulse oximetry 96 % 96 % [facility] ([facility]) Body temperature 96.8 [degF] 96.8 [degF] [facility] ([facility]) Body mass index (BMI) [Ratio] 39.1 kg/m2 39.1 k g/m2 [facility] ([facility]) [place] body weight 154 [lb_av] 154 [lb_av] MEDEN T ([facility]) Systolic blood pressure 140 mm[Hg] 140 mm[Hg] M EDENT ([facility]) Diastolic blood pressure 82 mm[Hg] 82 mm[Hg] [facility] Body weight 116.575 kg 116.575 kg [facility] ([facility], ) Body surface area Derived from formula 2.27 m2 2.27 m2 [facility] Body temperature 98.4 [degF] 98.4 [degF] eCW1 ( [facility]) Body weight 261 [lb_av] 261 [lb_av] eCW1 ([facility]) Body height 68 [in_i] 68 [in_i] eCW1 ([facility]) Body mass index (BMI) [Ratio] 39.68 kg/m2 39.68 kg/m2 eCW1 ([facility]) Heart rate 97 /min 97 /min eCW1 ([facility]) Respiratory rate 16 /min 16 /min eCW1 ([facility]) Systolic blood pressure 156 mm[Hg] 156 mm[Hg] e CW1 ([facility]) Diastolic blood pressure 103 mm[Hg] 103 mm[Hg] eCW1 ([facility]) Body weight 253.8 [lb_av] 253.8 [lb_av] eCW1 ([facility]) Body height 68 [in_i] 68 [in_i] eCW1 ([facility]) Body mass index (BMI) [Ratio] 38.59 kg/m2 38.59 kg/m2 W1 ([facility]) Heart rate 67 /min 67 /min eCW1 ([facility]) Respiratory rate 18 /min 18 /min eCW1 ([facility]) Body temperature 98.1 [degF] 98.1 [degF] eCW1 ( [facility]) Systolic blood pressure 168 mm[Hg] 168 mm[Hg] e CW1 ([facility]) Diastolic blood pressure 92 mm[Hg] 92 mm[Hg] eCW1 ([facility]) Patient Treatment Plan of Care Planned Activity Planned Date Details Description Data Source (s) Rabeprazole sodium 20 MG Delayed Release Oral Tablet 021 12:00:00 AM EDT eCW1 ([facility]) Rabeprazole sodium 20 MG Delayed Release Oral Tablet 12:00:00 AM EDT eCW1 ([facility]) Rabeprazole sodium 20 MG Delayed Release Oral Tablet 12:00:00 AM EDT eCW1 ([facility]) Rabeprazole sodium 20 MG Delayed Release Oral Tablet 12:00:00 AM EDT eCW1 ([facility]) Rabeprazole sodium 20 MG Delayed Release Oral Tablet 12:00:00 AM EDT eCW1 ([facility]) Rabeprazole sodium 20 MG Delayed Release Oral Tablet 12:00:00 AM EDT eCW1 ([facility]) Rabeprazole sodium 20 MG Delayed Release Oral Tablet 12:00:00 AM EDT eCW1 ([facility]) pantoprazole 20 MG Delayed Release Oral Tablet [Proton ix] 03/13/2021 12:00:00 AM EDT eCW1 ([facility]) pantoprazole 20 MG Delayed Release Oral Tablet [Proton ix] 03/13/2021 12:00:00 AM EDT eCW1 ([facility]) pantoprazole 20 MG Delayed Release Oral Tablet [Proton ix] 03/13/2021 12:00:00 AM EDT eCW1 ([facility]) pantoprazole 20 MG Delayed Release Oral Tablet [Proton ix] 03/13/2021 12:00:00 AM EDT eCW1 ([facility]) pantoprazole 20 MG Delayed Release Oral Tablet [Proton ix] 03/13/2021 12:00:00 AM EDT eCW1 ([facility]) pantoprazole 20 MG Delayed Release Oral Tablet [Proton ix] 03/13/2021 12:00:00 AM EDT eCW1 ([facility]) pantoprazole 20 MG Delayed Release Oral Tablet [Proton ix] 03/13/2021 12:00:00 AM EDT eCW1 ([facility]) pantoprazole 20 MG Delayed Release Oral Tablet [Proton ix] 03/13/2021 12:00:00 AM EDT eCW1 ([facility]) pantoprazole 20 MG Delayed Release Oral Tablet [Proton ix] 03/13/2021 12:00:00 AM EDT eCW1 ([facility]) pantoprazole 20 MG Delayed Release Oral Tablet [Proton ix] 03/13/2021 12:00:00 AM EDT eCW1 ([facility]) pantoprazole 20 MG Delayed Release Oral Tablet [Proton ix] 03/13/2021 12:00:00 AM EDT eCW1 ([facility]) empagliflozin 25 MG Oral Tablet [Jardiance] 12/13/2020 12:00:00 AM EST eCW1 ([facility]) Losartan Potassium 50 MG Oral Tablet 12/13/2020 12:00:00 AM EST eCW1 ([facility]) empagliflozin 25 MG Oral Tablet [Jardiance] 12/13/2020 12:00:00 AM EST eCW1 ([facility]) Losartan Potassium 50 MG Oral Tablet 12/13/2020 12:00:00 AM EST eCW1 ([facility]) empagliflozin 25 MG Oral Tablet [Jardiance] 12/13/2020 12:00:00 AM EST eCW1 ([facility]) Losartan Potassium 50 MG Oral Tablet 12/13/2020 12:00:00 AM EST eCW1 ([facility]) empagliflozin 25 MG Oral Tablet [Jardiance] 12/13/2020 12:00:00 AM EST eCW1 ([facility]) Losartan Potassium 50 MG Oral Tablet 12/13/2020 12:00:00 AM EST eCW1 ([facility]) Losartan Potassium 50 MG Oral Tablet 12/13/2020 12:00:00 AM EST eCW1 ([facility]) Losartan Potassium 50 MG Oral Tablet 12/13/2020 12:00:00 AM EST eCW1 ([facility]) Losartan Potassium 50 MG Oral Tablet 12/13/2020 12:00:00 AM EST eCW1 ([facility]) Losartan Potassium 50 MG Oral Tablet 12/13/2020 12:00:00 AM EST eCW1 ([facility]) Losartan Potassium 50 MG Oral Tablet 12/13/2020 12:00:00 AM EST eCW1 ([facility]) Losartan Potassium 50 MG Oral Tablet 12/13/2020 12:00:00 AM EST eCW1 ([facility]) Losartan Potassium 50 MG Oral Tablet 12/13/2020 12:00:00 AM EST eCW1 ([facility]) empagliflozin 25 MG Oral Tablet [Jardiance] 12/13/2020 12:00:00 AM EST eCW1 ([facility]) Rosuvastatin calcium 40 MG Oral Tablet 12/13/2020 12:00:00 AM EST eCW1 ([facility]) Losartan Potassium 50 MG Oral Tablet 12/13/2020 12:00:00 AM EST eCW1 ([facility]) empagliflozin 25 MG Oral Tablet [Jardiance] 12/13/2020 12:00:00 AM EST eCW1 ([facility]) Rosuvastatin calcium 40 MG Oral Tablet 12/13/2020 12:00:00 AM EST eCW1 ([facility]) Losartan Potassium 50 MG Oral Tablet 12/13/2020 12:00:00 AM EST eCW1 ([facility])
[2021-07-31 17:00] LABS: INR 0.9; PROTHROMBIN TIME 12.5 SECONDS (12.7-14.5)
[2021-07-31 17:01] LABS: PARTIAL THROMBOPLASTIN TIME 30.2 SECONDS (25.9-37.0)
[2021-07-31 17:13] LABS: ALBUMIN 3.6 GM/DL (3.2-5.2); ALT/SGPT 37 U/L (12-78); BILIRUBIN,DIRECT 0.1 MG/DL (0.0-0.2); BILIRUBIN,TOTAL 0.6 MG/DL (0.2-1.0); C REACTIVE PROTEIN QUANTITATIV < 0.30 MG/DL (0.00-0.30); LIPASE 62 U/L (73-393); TOTAL PROTEIN 7.5 GM/DL (6.4-8.2)
== END 2021-07-31 19:26 | disposition home or self-care (01) ==
LOC: M ED 12:40
DX: R21 Rash and other nonspecific skin eruption (principal); E11.9 Type 2 diabetes mellitus without complications; E78.5 Hyperlipidemia, unspecified; K21.9 Gastro-esophageal reflux disease without esophagitis; Z86.73 Personal history of transient ischemic attack (TIA), and cerebral infarction without residual deficits; Z79.899 Other long term (current) drug therapy

== ENCOUNTER → 2021-09-18 | Outpatient (CLI) | payer MEDICARE, OTHER ==
[~2021-09-18] MED LIST changes: +CHLO125TA; +FINA5TAB2; +JARD1TAB3; +LORA-674; +META0.52 PO; +ROSU40TA4
[2021-09-18 08:36] LABS: MALB URINE SIEMENS 32.9 MG/L; MAU/CREAT RATIO 30.4 MCG/MG (0.0-30.0)
[2021-09-18 08:43] LABS: ALBUMIN 3.7 GM/DL (3.2-5.2); ALT/SGPT 43 U/L (12-78); BILIRUBIN,TOTAL 0.7 MG/DL (0.2-1.0); BLOOD UREA NITROGEN 17 MG/DL (7-18); CALCIUM LEVEL 9.1 MG/DL (8.8-10.2); CARBON DIOXIDE LEVEL 33 MEQ/L (21-32); CHLORIDE LEVEL 98 MEQ/L (98-107); CHOLESTEROL LEVEL 166 MG/DL (<200); CHOLESTEROL RISK RATIO 3.772 (<5); CREATININE FOR GFR 0.74 MG/DL (0.70-1.30); GLOMERULAR FILTRATION RATE > 60.0 (>49); GLUCOSE, FASTING 153 MG/DL (70-100); HDL CHOLESTEROL 44 MG/DL (>40); NON-HDL-C 122 MG/DL; POTASSIUM SERUM 3.8 MEQ/L (3.5-5.1); SODIUM LEVEL 138 MEQ/L (136-145); TOTAL PROTEIN 7.1 GM/DL (6.4-8.2); TRIGLYCERIDES LEVEL 504 MG/DL (<150)
[2021-09-18 09:46] LABS: HEMOGLOBIN A1c 7.6 %
== END ==
LOC: M LAB 07:18
PROVIDERS: ATTEND Family Medicine
DX: E11.9 Type 2 diabetes mellitus without complications (principal); E78.1 Pure hyperglyceridemia; E87.6 Hypokalemia

== ENCOUNTER → 2022-01-15 | Outpatient (CLI) | payer MEDICARE, OTHER ==
[2022-01-15 09:30] LABS: BLOOD UREA NITROGEN 19 MG/DL (7-18); CALCIUM LEVEL 9.1 MG/DL (8.8-10.2); CARBON DIOXIDE LEVEL 34 MEQ/L (21-32); CHLORIDE LEVEL 96 MEQ/L (98-107); CHOLESTEROL LEVEL 168 MG/DL (<200); CHOLESTEROL RISK RATIO 3.733 (<5); CREATININE FOR GFR 0.71 MG/DL (0.70-1.30); GLOMERULAR FILTRATION RATE > 60.0 (>49); GLUCOSE, FASTING 160 MG/DL (70-100); HDL CHOLESTEROL 45 MG/DL (>40); NON-HDL-C 123 MG/DL; POTASSIUM SERUM 3.7 MEQ/L (3.5-5.1); SODIUM LEVEL 138 MEQ/L (136-145); TRIGLYCERIDES LEVEL 602 MG/DL (<150)
[2022-01-15 09:34] LABS: CREATININE, URINE 91.6 MG/DL; MAU/CREAT RATIO 114.6 MCG/MG (0.0-30.0)
[2022-01-15 10:18] LABS: HEMOGLOBIN A1c 7.6 %
== END ==
LOC: M LAB 07:28
PROVIDERS: ATTEND Family Medicine
DX: E78.2 Mixed hyperlipidemia (principal); I10 Essential (primary) hypertension; Z79.899 Other long term (current) drug therapy

== ENCOUNTER → 2022-05-12 | Outpatient (CLI) | payer MEDICARE, OTHER ==
[2022-05-12 08:03] LABS: HEMOGLOBIN A1c 7.3 %
[2022-05-12 08:09] LABS: BLOOD UREA NITROGEN 20 MG/DL (7-18); CALCIUM LEVEL 8.8 MG/DL (8.8-10.2); CARBON DIOXIDE LEVEL 33 MEQ/L (21-32); CHLORIDE LEVEL 100 MEQ/L (98-107); CHOLESTEROL LEVEL 145 MG/DL (<200); CHOLESTEROL RISK RATIO 2.685 (<5); CREATININE FOR GFR 0.71 MG/DL (0.70-1.30); GLOMERULAR FILTRATION RATE > 60.0 (>49); GLUCOSE, FASTING 169 MG/DL (70-100); HDL CHOLESTEROL 54 MG/DL (>40); LDL CHOLESTEROL 28 MG/DL (<100); NON-HDL-C 91 MG/DL; POTASSIUM SERUM 3.8 MEQ/L (3.5-5.1); SODIUM LEVEL 139 MEQ/L (136-145); TRIGLYCERIDES LEVEL 313 MG/DL (<150)
== END ==
LOC: M LAB 07:10
PROVIDERS: ATTEND Family Medicine
DX: E11.9 Type 2 diabetes mellitus without complications (principal)

== ENCOUNTER → 2022-11-12 | Outpatient (CLI) | payer MEDICARE, OTHER ==
[2022-11-12 07:43] LABS: CREATININE, URINE 96.8 MG/DL; CREATININE,RANDOM URINE 96.8 MG/DL
[2022-11-12 08:07] LABS: BLOOD UREA NITROGEN 17 MG/DL (9-23); CALCIUM LEVEL 8.8 MG/DL (8.3-10.6); CARBON DIOXIDE LEVEL 33 MMOL/L (20-31); CHLORIDE LEVEL 98 MMOL/L (98-107); CHOLESTEROL LEVEL 138 MG/DL (<200); CHOLESTEROL RISK RATIO 2.84 (<5); CREATININE FOR GFR 0.64 MG/DL (0.70-1.30); GLOMERULAR FILTRATION RATE > 60.0 (>49); GLUCOSE, FASTING 134 MG/DL (74-106); HDL CHOLESTEROL 48.5 MG/DL (>40); LDL CHOLESTEROL 22.7 MG/DL (<100); NON-HDL-C 90 MG/DL; POTASSIUM SERUM 3.3 MMOL/L (3.5-5.1); SODIUM LEVEL 137 MMOL/L (136-145); TRIGLYCERIDES LEVEL 334 MG/DL (<150)
[2022-11-12 08:22] LABS: HEMOGLOBIN A1c 6.5 % (4.0-6.0)
== END ==
LOC: M LAB 06:04
PROVIDERS: ATTEND Family Medicine
DX: E11.9 Type 2 diabetes mellitus without complications (principal); E78.2 Mixed hyperlipidemia

== ENCOUNTER → 2023-05-18 | Outpatient (CLI) | payer MEDICARE, OTHER ==
[~2023-05-18] MED LIST changes: +LIDO15SO SSP; -LIDO2SOL17 SSP
[2023-05-18 07:17] LABS: ALBUMIN 3.7 G/DL (3.2-5.2); ALKALINE PHOSPHATASE 48 U/L (46-116); ALT/SGPT 34 U/L (7.0-40); AST/SGOT 18 U/L (<34); BILIRUBIN,TOTAL 0.7 MG/DL (0.3-1.2); BLOOD UREA NITROGEN 22 MG/DL (9-23); CALCIUM LEVEL 8.6 MG/DL (8.3-10.6); CARBON DIOXIDE LEVEL 31 MMOL/L (20-31); CHLORIDE LEVEL 99 MMOL/L (98-107); GLOMERULAR FILTRATION RATE > 60.0 (>49); GLUCOSE, FASTING 149 MG/DL (74-106); HEMOGLOBIN A1c 6.4 % (4.0-6.0); POTASSIUM SERUM 3.8 MMOL/L (3.5-5.1); SODIUM LEVEL 139 MMOL/L (136-145); TOTAL PROTEIN 6.8 G/DL (5.7-8.2)
== END ==
LOC: M LAB 06:08
PROVIDERS: ATTEND Family Medicine
DX: E11.9 Type 2 diabetes mellitus without complications (principal)

== ENCOUNTER 2023-09-23 07:11 | Emergency (ER) | payer MEDICARE, OTHER ==
[~2023-09-23] VITALS: Ht 172.7 cm; Wt 105.1 kg
[~2023-09-23 07:11] MED LIST changes: +LORA-1041; -LORA-674
[2023-09-23] MEDS ORDERED: LOVA1CAP17 PO (07:33)
[2023-09-23] MEDS ORDERED: TRUL0.5I SC (07:33)
[2023-09-23] MEDS ORDERED: CRES40TA PO (07:33)
[2023-09-23 08:34] LABS: BASO # 0.1 10^3/uL (0.0-0.2); BASO % 0.9 % (0.0-1.0); EOS # 0.2 10^3/uL (0.0-0.5); EOS % 2.3 % (0.0-3.0); HEMATOCRIT 46.9 % (42.0-52.0); HEMOGLOBIN 16.6 g/dl (13.5-17.5); LYMPH # 1.5 10^3/uL (1.5-5.0); LYMPH % 16.1 % (24.0-44.0); MEAN CORPUSCULAR HEMOGLOBIN 29.9 pg (27.0-33.0); MEAN CORPUSCULAR HGB CONC 35.4 g/dl (32.0-36.5); MEAN CORPUSCULAR VOLUME 84.5 fl (80.0-96.0); MONO # 0.8 10^3/uL (0.0-0.8); MONO % 8.8 % (2.0-8.0); NEUTROPHILS # 6.4 10^3/uL (1.5-8.5); NEUTROPHILS % 71.5 % (36.0-66.0); PLATELET COUNT, AUTOMATED 185 10^3/uL (150-450); RED BLOOD COUNT 5.55 10^6/uL (4.30-6.10)
[2023-09-23 09:03] LABS: BLOOD UREA NITROGEN 21 MG/DL (9-23); CALCIUM LEVEL 8.7 MG/DL (8.3-10.6); CARBON DIOXIDE LEVEL 30 MMOL/L (20-31); CHLORIDE LEVEL 99 MMOL/L (98-107); GLOMERULAR FILTRATION RATE > 60.0 (>49); GLUCOSE, FASTING 131 MG/DL (74-106); POTASSIUM SERUM 3.7 MMOL/L (3.5-5.1); SODIUM LEVEL 135 MMOL/L (136-145)
[2023-09-23 10:07] LABS: LIPASE 25 U/L (12-53)
[2023-09-23 10:09] LABS: ALBUMIN 3.3 G/DL (3.2-5.2); ALKALINE PHOSPHATASE 60 U/L (46-116); ALT/SGPT 28 U/L (7.0-40); AST/SGOT 19 U/L (<34); BILIRUBIN,DIRECT 0.2 MG/DL (<0.4); BILIRUBIN,TOTAL 0.6 MG/DL (0.3-1.2); TOTAL PROTEIN 6.6 G/DL (5.7-8.2)
[2023-09-23] MEDS ORDERED: NS 1,000 ML IV ONE (10:25)
[2023-09-23] MEDS ORDERED: LOMOTIL 2.5MG/0.025MG TABLET PO ONE (10:25)
[2023-09-23] MEDS: GASTROGRAFIN SOLUTION 30ML PO SCH ×2 (11:05→11:30)
[2023-09-23] MEDS ORDERED: ISOVUE-370 76% 100ML VIAL As Ordered ONE (12:28)
[2023-09-23] MEDS ORDERED: METR-265 PO (13:51)
[2023-09-23] MEDS ORDERED: CIPR-249 PO (13:51)
[2023-09-23 13:52] VITALS: BP 142/81; TEMP 98; O2SAT 96
== END 2023-09-23 14:03 | disposition home or self-care (01) ==
LOC: M ED 07:11
DX: K52.9 Noninfective gastroenteritis and colitis, unspecified (principal); E11.9 Type 2 diabetes mellitus without complications; K21.9 Gastro-esophageal reflux disease without esophagitis; E78.5 Hyperlipidemia, unspecified; Z91.011 Allergy to milk products; Z88.8 Allergy status to other drugs, medicaments and biological substances; Z79.811 Long term (current) use of aromatase inhibitors; Z79.4 Long term (current) use of insulin; Z79.899 Other long term (current) drug therapy
CPT/HCPCS: 36415; 74177; 80048; 80076; 83690; 85025; 87507; 96360; 99284; Q9963; Q9967

== ENCOUNTER → 2023-09-29 | Outpatient (CLI) | payer MEDICARE, OTHER ==
[~2023-09-29] MED LIST changes: +CIPR-249 PO; +CRES40TA PO; +LOVA1CAP17 PO; +METR-265 PO; +TRUL0.5I SC
[2023-09-29 07:28] LABS: HEMOGLOBIN A1c 6.7 % (4.0-6.0)
[2023-09-29 07:42] LABS: CREATININE, URINE 131.7 MG/DL
[2023-09-29 07:43] LABS: MAU/CREAT RATIO 8.3 MCG/MG (0.0-30.0)
[2023-09-29 07:57] LABS: ALBUMIN 3.2 G/DL (3.2-5.2); ALKALINE PHOSPHATASE 52 U/L (46-116); ALT/SGPT 37 U/L (7.0-40); AST/SGOT 26 U/L (<34); BILIRUBIN,TOTAL 0.6 MG/DL (0.3-1.2); BLOOD UREA NITROGEN 18 MG/DL (9-23); CALCIUM LEVEL 8.9 MG/DL (8.3-10.6); CARBON DIOXIDE LEVEL 32 MMOL/L (20-31); CHLORIDE LEVEL 101 MMOL/L (98-107); CHOLESTEROL LEVEL 99 MG/DL (<200); CHOLESTEROL RISK RATIO 2.45 (<5); CREATININE FOR GFR 0.64 MG/DL (0.70-1.30); GLOMERULAR FILTRATION RATE > 60.0 (>49); GLUCOSE, FASTING 145 MG/DL (74-106); HDL CHOLESTEROL 40.4 MG/DL (>40); NON-HDL-C 58.6 MG/DL; POTASSIUM SERUM 3.8 MMOL/L (3.5-5.1); SODIUM LEVEL 140 MMOL/L (136-145); TOTAL PROTEIN 6.6 G/DL (5.7-8.2); TRIGLYCERIDES LEVEL 163 MG/DL (<150)
== END ==
LOC: M LAB 06:14
PROVIDERS: ATTEND Family Medicine
DX: E11.9 Type 2 diabetes mellitus without complications (principal); E78.2 Mixed hyperlipidemia

== ENCOUNTER 2023-10-25 00:55 | Emergency (ER) | payer MEDICARE, OTHER ==
[~2023-10-25] VITALS: Ht 172.7 cm; Wt 105.0 kg
[~2023-10-25 00:55] MED LIST changes: -CHLO125TA; +CHLO125TA PO; -FINA5TAB2; +FINA5TAB2 PO; -JARD1TAB3; +JARD1TAB3 PO; -LORA-1041; +LORA-1041 PO; +LOSA50TA28 PO; +RABE1TAB4 PO; -ROSU40TA4; +ROSU40TA4 PO; +TAMS1CAP17 PO; +THERTAB21 PO
[2023-10-25 01:02] VITALS: BP 144/85; TEMP 97.7; O2SAT 96
== END 2023-10-25 06:31 | disposition left against medical advice (07) ==
LOC: M ED 00:55 → EDBD 00:55 → M ED 06:31
DX: Z53.21 Procedure and treatment not carried out due to patient leaving prior to being seen by health care provider (principal)

== ENCOUNTER 2023-11-04 06:30 | Emergency (ER) | payer MEDICARE, OTHER ==
[~2023-11-04] VITALS: Ht 172.7 cm; Wt 102.3 kg
[2023-11-04 07:21] LABS: BASO % 0.5 % (0.0-1.0); EOS # 0.2 10^3/uL (0.0-0.5); EOS % 5.2 % (0.0-3.0); HEMATOCRIT 48.6 % (42.0-52.0); HEMOGLOBIN 16.5 g/dl (13.5-17.5); LYMPH # 0.8 10^3/uL (1.5-5.0); LYMPH % 17.6 % (24.0-44.0); MEAN CORPUSCULAR HEMOGLOBIN 29.6 pg (27.0-33.0); MEAN CORPUSCULAR VOLUME 87.1 fl (80.0-96.0); MONO # 0.6 10^3/uL (0.0-0.8); MONO % 12.4 % (2.0-8.0); NEUTROPHILS # 2.8 10^3/uL (1.5-8.5); NEUTROPHILS % 64.3 % (36.0-66.0); PLATELET COUNT, AUTOMATED 201 10^3/uL (150-450); RED BLOOD COUNT 5.58 10^6/uL (4.30-6.10); WHITE BLOOD COUNT 4.4 10^3/uL (4.0-10.0)
[2023-11-04 07:38] LABS: APPEARANCE, URINE HAZY (CLEAR); BACTERIA, URINE AUTO NEGATIVE (NEGATIVE); BILIRUBIN, URINE AUTO NEGATIVE (NEGATIVE); BLOOD, URINE BLOOD NEGATIVE (NEGATIVE); COLOR, URINE YELLOW (YELLOW); GLUCOSE, URINE (UA) AUTO 3+ mg/dL (NEGATIVE); KETONE, URINE AUTO NEGATIVE (NEGATIVE); LEUKOCYTE ESTERASE, URINE AUTO NEGATIVE (NEGATIVE); MUCUS, URINE SMALL (NEGATIVE); NITRITE, URINE AUTO NEGATIVE (NEGATIVE); PROTEIN, URINE AUTO 1+ mg/dL (NEGATIVE); RBC, URINE AUTO 0 /HPF (0-3); SPECIFIC GRAVITY URINE AUTO 1.032 (1.002-1.035); SQUAMOUS EPITHELIAL CELL UR AU 0 /HPF (0-6); UROBILINOGEN, URINE AUTO 0.2 mg/dL (0.0-2.0); WBC, URINE AUTO 2 /HPF (0-3)
[2023-11-04 07:41] LABS: LIPASE 22 U/L (12-53)
[2023-11-04 07:44] LABS: ALBUMIN 3.2 G/DL (3.2-5.2); ALKALINE PHOSPHATASE 53 U/L (46-116); ALT/SGPT 22 U/L (7.0-40); AST/SGOT 13 U/L (<34); BILIRUBIN,DIRECT 0.4 MG/DL (<0.4); BILIRUBIN,TOTAL 1.1 MG/DL (0.3-1.2); BLOOD UREA NITROGEN 29 MG/DL (9-23); CALCIUM LEVEL 8.2 MG/DL (8.3-10.6); CARBON DIOXIDE LEVEL 30 MMOL/L (20-31); CHLORIDE LEVEL 105 MMOL/L (98-107); CREATININE FOR GFR 0.63 MG/DL (0.70-1.30); GLOMERULAR FILTRATION RATE > 60.0 (>49); GLUCOSE, FASTING 133 MG/DL (74-106); POTASSIUM SERUM 4.5 MMOL/L (3.5-5.1); SODIUM LEVEL 139 MMOL/L (136-145); TOTAL PROTEIN 6.6 G/DL (5.7-8.2)
[2023-11-04] MEDS ORDERED: MORPHINE 4 MG/ML 1ML VIAL IV ONE (09:25)
[2023-11-04] MEDS ORDERED: ONDANSETRON 4MG 2ML VIAL IV ONE (09:25)
[2023-11-04] MEDS ORDERED: ISOVUE-370 76% 100ML VIAL As Ordered ONE (09:33)
[2023-11-04 10:57] VITALS: O2SAT 96
[2023-11-04] MEDS ORDERED: LOMO2.5T PO (12:05)
[2023-11-04] MEDS ORDERED: ONDA4TAB6 PO (12:05)
[2023-11-04 12:20] VITALS: BP 165/81; TEMP 96.6
== END 2023-11-04 12:24 | disposition home or self-care (01) ==
LOC: EDBD 06:30 → M ED 06:30
DX: K52.9 Noninfective gastroenteritis and colitis, unspecified (principal); K76.0 Fatty (change of) liver, not elsewhere classified; E11.9 Type 2 diabetes mellitus without complications; I10 Essential (primary) hypertension; K21.9 Gastro-esophageal reflux disease without esophagitis; E78.5 Hyperlipidemia, unspecified; Z86.79 Personal history of other diseases of the circulatory system; Z88.8 Allergy status to other drugs, medicaments and biological substances; Z91.011 Allergy to milk products; Z79.811 Long term (current) use of aromatase inhibitors; Z79.83 Long term (current) use of bisphosphonates; Z79.899 Other long term (current) drug therapy
CPT/HCPCS: 74177; 80048; 80076; 81001; 83690; 85025; 87486; 87507; 87581; 87633; 87798; 96374; 99284; J2405; Q9967

== ENCOUNTER 2023-12-28 07:28 | Emergency (ER) | payer MEDICARE, OTHER ==
[~2023-12-28] VITALS: Ht 172.7 cm; Wt 107.3 kg
[~2023-12-28 07:28] MED LIST changes: -LIDO15SO SSP; +LIDO15SO8 SSP; +LOMO2.5T PO; +ONDA4TAB6 PO
[2023-12-28 08:33] LABS: BASO % 0.6 % (0.0-1.0); EOS # 0.2 10^3/uL (0.0-0.5); EOS % 3.2 % (0.0-3.0); HEMATOCRIT 47.6 % (42.0-52.0); HEMOGLOBIN 16.2 g/dl (13.5-17.5); LYMPH # 1.5 10^3/uL (1.5-5.0); LYMPH % 22.4 % (24.0-44.0); MEAN CORPUSCULAR HEMOGLOBIN 29.3 pg (27.0-33.0); MEAN CORPUSCULAR VOLUME 86.2 fl (80.0-96.0); MONO # 0.5 10^3/uL (0.0-0.8); MONO % 6.9 % (2.0-8.0); NEUTROPHILS # 4.4 10^3/uL (1.5-8.5); NEUTROPHILS % 66.7 % (36.0-66.0); PLATELET COUNT, AUTOMATED 177 10^3/uL (150-450); RED BLOOD COUNT 5.52 10^6/uL (4.30-6.10); WHITE BLOOD COUNT 6.6 10^3/uL (4.0-10.0)
[2023-12-28 09:05] LABS: BLOOD UREA NITROGEN 20 MG/DL (9-23); CALCIUM LEVEL 8.5 MG/DL (8.3-10.6); CARBON DIOXIDE LEVEL 29 MMOL/L (20-31); CHLORIDE LEVEL 104 MMOL/L (98-107); CREATININE FOR GFR 0.56 MG/DL (0.70-1.30); GLOMERULAR FILTRATION RATE > 60.0 (>49); GLUCOSE, FASTING 135 MG/DL (74-106); POTASSIUM SERUM 4.2 MMOL/L (3.5-5.1); SODIUM LEVEL 139 MMOL/L (136-145)
[2023-12-28] MEDS ORDERED: MULT-193 PO (09:24)
[2023-12-28] MEDS ORDERED: HOME MED LIST COMPLETE! XX SCH (09:30)
[2023-12-28 13:45] VITALS: BP 156/82; O2SAT 96
[2023-12-28] MEDS ORDERED: MECL-86 PO (13:47)
[2023-12-28 14:01] VITALS: TEMP 97.8
== END 2023-12-28 14:13 | disposition home or self-care (01) ==
LOC: M ED 07:28
DX: H81.4 Vertigo of central origin (principal); E11.9 Type 2 diabetes mellitus without complications; I10 Essential (primary) hypertension; E78.5 Hyperlipidemia, unspecified; K21.9 Gastro-esophageal reflux disease without esophagitis; Z87.442 Personal history of urinary calculi; Z86.79 Personal history of other diseases of the circulatory system; Z79.811 Long term (current) use of aromatase inhibitors; Z79.899 Other long term (current) drug therapy; Z79.4 Long term (current) use of insulin

== ENCOUNTER 2024-01-22 06:47 | Day surgery (SDC) | payer MEDICARE, OTHER ==
[~2024-01-22] VITALS: Ht 172.7 cm; Wt 106.9 kg
[~2024-01-22 06:47] MED LIST changes: +CHLO25TA PO; +MECL-86 PO; +MULT-193 PO; +OMEG1CAP85 PO
[2024-01-22] MEDS: NS 1,000 ML IV ONE (07:12)
[2024-01-22] MEDS ORDERED: LIDOCAINE 2% 100MG/5ML SDV (FOR ANES.) As Ordered ONE (07:55)
[2024-01-22] MEDS ORDERED: propofoL 200 MG/20 ML VIAL As Ordered ONE (07:55)
[2024-01-22] MEDS ORDERED: fentaNYL 100 MCG/2 ML INJECTION As Ordered ONE (07:56)
[2024-01-22 09:11] VITALS: TEMP 97
[2024-01-22 09:35] VITALS: BP 148/79; O2SAT 96
== END 2024-01-22 09:50 | disposition home or self-care (01) ==
LOC: M OPP 06:47
PROVIDERS: ATTEND Surgery
DX: D12.6 Benign neoplasm of colon, unspecified (principal); K63.89 Other specified diseases of intestine; K64.9 Unspecified hemorrhoids; K52.9 Noninfective gastroenteritis and colitis, unspecified; K31.7 Polyp of stomach and duodenum; K29.70 Gastritis, unspecified, without bleeding; K31.89 Other diseases of stomach and duodenum; K30 Functional dyspepsia; I10 Essential (primary) hypertension; E11.9 Type 2 diabetes mellitus without complications; K76.0 Fatty (change of) liver, not elsewhere classified; K21.9 Gastro-esophageal reflux disease without esophagitis; Z86.73 Personal history of transient ischemic attack (TIA), and cerebral infarction without residual deficits; Z79.01 Long term (current) use of anticoagulants; Z79.83 Long term (current) use of bisphosphonates; Z79.84 Long term (current) use of oral hypoglycemic drugs; Z79.899 Other long term (current) drug therapy; Z87.891 Personal history of nicotine dependence; Z88.8 Allergy status to other drugs, medicaments and biological substances; Z91.011 Allergy to milk products
CPT/HCPCS: 43251; 45380; 45385; 88305; J3010

== ENCOUNTER 2024-07-23 04:27 | Emergency (ER) | payer MEDICARE, OTHER ==
[~2024-07-23] VITALS: Ht 172.7 cm; Wt 112.5 kg
[~2024-07-23 04:27] MED LIST changes: +OMEG-28 PO; -OMEG1CAP85 PO; +ONDA-282 PO; -ONDA4TAB6 PO; -ROSU40TA4 PO; +ROSU40TA81 PO
[2024-07-23] MEDS: AUGMENTIN 875 MG TAB PO ONE (06:30)
[2024-07-23] MEDS: oxyCODONE 5MG TAB PO ONE (06:39)
[2024-07-23] MEDS ORDERED: PERI0.126 PO (07:22)
[2024-07-23] MEDS ORDERED: AMOX875T2 PO (07:22)
[2024-07-23] MEDS ORDERED: OXYC-517 PO (07:22)
[2024-07-23 07:29] VITALS: BP 146/76; TEMP 97; O2SAT 95
== END 2024-07-23 07:38 | disposition home or self-care (01) ==
LOC: M ED 04:27
DX: K08.89 Other specified disorders of teeth and supporting structures (principal); Z79.2 Long term (current) use of antibiotics; Z79.811 Long term (current) use of aromatase inhibitors; Z79.899 Other long term (current) drug therapy

== ENCOUNTER 2024-08-22 17:11 | Emergency (ER) | payer MEDICARE, OTHER ==
[~2024-08-22] VITALS: Ht 172.7 cm; Wt 107.7 kg
[~2024-08-22 17:11] MED LIST changes: +AMOX875T2 PO; +OXYC-517 PO; +PERI0.126 PO
[2024-08-22] MEDS ORDERED: SEMA1PEN2 (17:28)
[2024-08-22 20:25] LABS: BASO # 0.1 10^3/uL (0.0-0.2); BASO % 0.5 % (0.0-1.0); EOS # 0.2 10^3/uL (0.0-0.5); EOS % 2.4 % (0.0-3.0); HEMATOCRIT 49.2 % (42.0-52.0); HEMOGLOBIN 17.6 g/dl (13.5-17.5); LYMPH # 2.5 10^3/uL (1.5-5.0); LYMPH % 27.5 % (24.0-44.0); MEAN CORPUSCULAR HEMOGLOBIN 30.6 pg (27.0-33.0); MEAN CORPUSCULAR HGB CONC 35.8 g/dl (32.0-36.5); MEAN CORPUSCULAR VOLUME 85.4 fl (80.0-96.0); MONO # 0.7 10^3/uL (0.0-0.8); MONO % 7.7 % (2.0-8.0); NEUTROPHILS # 5.7 10^3/uL (1.5-8.5); NEUTROPHILS % 61.6 % (36.0-66.0); PLATELET COUNT, AUTOMATED 215 10^3/uL (150-450); RED BLOOD COUNT 5.76 10^6/uL (4.30-6.10); WHITE BLOOD COUNT 9.2 10^3/uL (4.0-10.0)
[2024-08-22 20:30] LABS: LIPASE 30 U/L (12-53)
[2024-08-22 20:33] LABS: ALBUMIN 3.7 G/DL (3.2-5.2); ALKALINE PHOSPHATASE 75 U/L (40-129); ALT/SGPT 43 U/L (7.0-40); AST/SGOT 25 U/L (<34); BILIRUBIN,DIRECT 0.2 MG/DL (<0.4); BILIRUBIN,TOTAL 0.7 MG/DL (0.3-1.2); BLOOD UREA NITROGEN 23 MG/DL (9-23); CALCIUM LEVEL 10.2 MG/DL (8.3-10.6); CARBON DIOXIDE LEVEL 30 MMOL/L (20-31); CHLORIDE LEVEL 97 MMOL/L (98-107); CREATININE FOR GFR 0.53 MG/DL (0.70-1.30); GLOMERULAR FILTRATION RATE > 60.0 (>49); GLUCOSE, FASTING 156 MG/DL (74-106); MAGNESIUM LEVEL 2.2 MG/DL (1.8-2.4); POTASSIUM SERUM 3.8 MMOL/L (3.5-5.1); SODIUM LEVEL 137 MMOL/L (136-145); TOTAL PROTEIN 7.7 G/DL (5.7-8.2)
[2024-08-22] MEDS: ONDANSETRON 4MG 2ML VIAL IV ONE (20:38)
[2024-08-22 21:34] LABS: ACETONE/KETONE 0.48 MMOL/L (0.02-0.27)
[2024-08-22 22:04] LABS: VENOUS BASE EXCESS -0.2 (-2.0-2.0); VENOUS HCO3 23.8 MMOL/L (23.0-27.0); VENOUS O2 SATURATION 94.8 % (60.0-80.0); VENOUS PARTIAL PRESSURE CO2 37.3 mmHg (38.0-50.0); VENOUS PARTIAL PRESSURE O2 72.2 mmHg (30.0-50.0); VENOUS PH 7.422 UNITS (7.330-7.430); VENOUS STANDARD HCO3 24.2 MMOL/L; VENOUS TOTAL CO2 24.9 MMOL/L (24.0-28.0)
[2024-08-22] MEDS ORDERED: ONDA-282 PO (22:45)
[2024-08-22 22:54] VITALS: BP 157/85; TEMP 97.9; O2SAT 95
[2024-08-22] MEDS: NS 1,000 ML IV ONE (22:55)
[2024-08-22] MEDS: ONDANSETRON 4MG ORAL DISINTEGRATING TAB PO ONE (23:10)
== END 2024-08-22 23:24 | disposition short-term general hospital (02) ==
LOC: M ED 17:11 → EDBD 17:11 → M ED 23:24
DX: R11.0 Nausea (principal); T50.995A Adverse effect of other drugs, medicaments and biological substances, initial encounter; E11.9 Type 2 diabetes mellitus without complications; I10 Essential (primary) hypertension; E78.5 Hyperlipidemia, unspecified; N40.0 Benign prostatic hyperplasia without lower urinary tract symptoms; Z91.011 Allergy to milk products; Z88.8 Allergy status to other drugs, medicaments and biological substances; Z79.84 Long term (current) use of oral hypoglycemic drugs; Z79.2 Long term (current) use of antibiotics; Z79.811 Long term (current) use of aromatase inhibitors; Z79.83 Long term (current) use of bisphosphonates; Z79.899 Other long term (current) drug therapy
CPT/HCPCS: 74018; 80048; 80076; 82010; 82803; 83690; 83735; 85025; 96374; 99284; J2405

== ENCOUNTER → 2024-12-20 | Outpatient (CLI) | payer OTHER ==
[~2024-12-20] MED LIST changes: +SEMA1PEN2
== END ==
LOC: M RAD 14:32
PROVIDERS: ATTEND Nurse Practitioner Family
DX: N40.0 Benign prostatic hyperplasia without lower urinary tract symptoms (principal); Z87.442 Personal history of urinary calculi; N28.1 Cyst of kidney, acquired